=== PATIENT | female | born 1975 | race Caucasian/White ===

== ENCOUNTER 2017-12-30 15:59 | Emergency (ER) | payer OTHER ==
[~2017-12-30] VITALS: Ht 165.1 cm; Wt 102.1 kg
[~2017-12-30 15:59] MED LIST: EFFEXOR XR150 MG; NORCO 7.5-3251 EACH; PRAVACHOL40 MG; PRINIVIL20 MG; invokana
== END 2017-12-30 17:06 | disposition left against medical advice (07) ==
LOC: ER 15:59
DX: M54.2 Cervicalgia (principal); G89.29 Other chronic pain
CPT/HCPCS: 99282

== ENCOUNTER 2020-01-23 04:38 | Emergency (ER) | payer OTHER ==
[~2020-01-23] VITALS: Ht 165.1 cm; Wt 102.1 kg
[~2020-01-23 04:38] MED LIST changes: -ASPIRIN325 MG PO; -ATORVASTATIN CA20 MG PO; -B&O 60MG R/S 60 MG SUPP PR ONE; -CEFTRIAXONE SOD 1 GM/NS 50 ML 50 ML IV ONE; -CLOPIDOGREL75 MG PO; -DEXAMETHASONE SOD PHOS INJ 4 MG/ML VIAL ONE; -ESMOLOL HCL 100MG/10ML 10 MG/ML VIAL ONE; -FENTANYL CITRATE/PF 100MCG/2 ML INJ ONE; -FISH OIL 1,0001 EAC2 PEG; -HYDROMORPHONE 1MG/1ML INJ ONE; -IOPAMIDOL 300MG/ML 50ML INFUS..BTL IV ONE; -KETOROLAC TROMETHAMINE 30 MG/ML VIAL ONE; -LASIX20 MG PO; -LIDOCAINE HCL 2% LOCAL INJ 5 ML SDV VIAL INJ ONE; -METOPROLOL SUCC50 MG PO; -METOPROLOL TARTRATE INJ 1 MG/ML VIAL ONE; -MIDAZOLAM HCL 2 MG/2 ML VIAL ONE; -ONDANSETRON HCL INJ 2MG/ML 2ML 2 MG/ML VIAL ONE; -PROPOFOL IV EMULSION 10 MG/ML 20 ML VIAL ONE; -SEVOFLURANE INHAL SOLN 250 ML PEN BTL ONE
--- OUTSIDE RECORDS SUMMARY | 2020-01-23 04:40 | XMS REPORT | Summary of Care ---
Author Author [facility] Organization [facility] Address Unknown Phone Unavailable Encounter ROMELIA Smith(LEO) [id number] Date(s): 04/24/16 - 04/25/16 [facility] [address] [place] [address]- [phone] Discharge Diagnosis: Foreign body of buttock with infection Discharge Disposition: Home or Self Care Attending Physician: Halina Sun MD Admitting Physician: Halina Sun MD Vital Signs 1 2 3 Most recent to oldest [Reference Range]: 165.1 cm (04/24/16 10:08 PM) 165.1 cm (04/24/16 12:18 PM) Height 98 DegF (04/25/16 4:00 PM) 97.8 DegF (04/25/16 10:42 AM) 97.9 DegF (04/25/16 4:00 AM) Temperature Oral [96.4-99.1 DegF] 138/91 mmHg (04/25/16 4:00 PM) 122/81 mmHg (04/25/16 12:10 PM) 116/77 mmHg (04/25/16 11:40 AM) Blood Pressure [90-140/60-90 mmHg] 14 BRMIN (04/25/16 4:23 PM) 18 BRMIN (04/25/16 4:00 PM) 18 BRMIN (04/25/16 12:10 PM) Respiratory Rate [14-20 BRMIN] 93 bpm (04/25/16 4:00 PM) 65 bpm (04/25/16 12:10 PM) 72 bpm (04/25/16 11:40 AM) Peripheral Pulse Rate [60-100 bpm] 101.364 kg (04/24/16 10:08 PM) 102.273 kg (04/24/16 12:18 PM) Weight 37.19 m2 (04/24/16 10:08 PM) 37.52 m2 (04/24/16 12:18 PM) Body Mass Index Problem List Condition Effective Dates Status Health Status Informan t Anxiety(Confirmed) Resolved ADD (attention Resolved deficit disorder)(Confirmed) Chronic Resolved pain(Confirmed) Depression Resolved (emotion)(Confirmed) DM (diabetes Resolved mellitus)(Confirmed) IBS (irritable bowel Resolved syndrome)(Confirmed) Allergies, Adverse Reactions, Alerts Substance Reaction Severity Status Bactrim Active traMADol Active Medications acetaminophen-hydrocodone 325 mg-7.5 mg oral tablet 1 tab, PO, TID, PRN Pain Score 1-5, 0 Refill(s) Start Date: 04/24/16 Status: Ordered acetaminophen-hydrocodone 325 mg-7.5 mg oral tablet 1 tab, Route: PO, Drug Form: TAB, Dosing Weight 101.364, kg, TID, PRN Pain Score 1-5, Start date: 04/25/16 12:00:00 CDT, Duration: 30 day, Stop date: 05/25/16 1:59:00 CDT Notes: Same as [place] 325-7.5mg Do not exceed 4gm/day of acetaminophen. Start Date: 04/25/16 Stop Date: 04/25/16 Status: Discontinued Adderall 20 mg, Route: PO, Drug form: TAB, BID, Dosing Weight 101.364, kg, Start date: 17:00:00 CDT, Duration: 30 day, Stop date: 05/25/16 9:00:00 CDT Start Date: 04/25/16 Stop Date: 04/25/16 Status: Discontinued Adderall 20 mg oral tablet 20 mg = 1 tab, PO, BID, # 60 tab, 0 Refill(s) Start Date: 04/24/16 Stop Date: 05/24/16 Status: Ordered clindamycin 600 mg, 50 mL, Route: IVPB, Drug form: INJ, ABXQ8H, Dosing Weight 102.273, kg, P riority: STAT, Start date: 04/24/16 18:25:00 CDT, Duration: 3 day, Stop date: 10:25:00 CDT Start Date: 04/24/16 Stop Date: 04/25/16 Status: Discontinued clindamycin 600 mg, 50 mL, Route: IVPB, Drug form: INJ, ABXQ8H, Dosing Weight 101.364, kg, S tart date: 04/25/16 12:00:00 CDT, Duration: 30 day, Stop date: 05/25/16 5:00:00 CDT Start Date: 04/25/16 Stop Date: 04/25/16 Status: Discontinued clindamycin (ANES) Route: IV, Drug form: INJ, ONCE, Stop date: 04/25/16 9:20:00 CDT Start Date: 04/25/16 Stop Date: 04/25/16 Status: Completed clonazePAM 1 mg, 1 tab, Route: PO, Drug form: TAB, BID, Dosing Weight 101.364, kg, PRN Anxi ety, Start date: 04/25/16 10:17:00 CDT, Duration: 30 day, Stop date: 05/25/16 10 :16:00 CDT Notes: (Same As: KlonoPIN) Start Date: 04/25/16 Stop Date: 04/25/16 Status: Discontinued clonazePAM 1 mg oral tablet 1 mg = 1 tab, PO, BID, PRN Anxiety, # 60 tab, 0 Refill(s) Start Date: 04/24/16 Status: Ordered dexamethasone (ANES) Route: IV, Drug form: INJ, ONCE, Stop date: 04/25/16 9:20:00 CDT Start Date: 04/25/16 Stop Date: 04/25/16 Status: Completed docusate sodium 100 mg oral capsule 100 mg, 1 cap, Route: PO, Drug form: CAP, BID, Dosing Weight 101.364, kg, Start date: 04/25/16 17:00:00 CDT, Duration: 30 day, Stop date: 05/25/16 9:00:00 CDT Notes: (Same as: Colace) (Do Not Crush) Start Date: 04/25/16 Stop Date: 04/25/16 Status: Discontinued Effexor XR 75 mg, 2 cap, Route: PO, Drug form: ERCAP, Daily, Dosing Weight 101.364, kg, Sta rt date: 04/26/16 9:00:00 CDT, Duration: 30 day, Stop date: 05/25/16 9:00:00 CDT Notes: Do not open, crush, or chew.(Same As: Effexor XR) Start Date: 04/26/16 Stop Date: 04/25/16 Status: Canceled Effexor XR 75 mg oral capsule, extended release 75 mg = 1 cap, PO, Daily, # 30 cap, 0 Refill(s) Start Date: 04/24/16 Status: Ordered famotidine 20 mg, 1 tab, Route: PO, Drug form: TAB, Q12H, Dosing Weight 101.364, kg, Start date: 04/25/16 21:00:00 CDT, Duration: 30 day, Stop date: 05/25/16 9:00:00 CDT Notes: (Same as: Pepcid) Start Date: 04/25/16 Stop Date: 04/25/16 Status: Discontinued fentaNYL (ANES) Route: IV, Drug form: INJ, ONCE, Stop date: 04/25/16 9:20:00 CDT Start Date: 04/25/16 Stop Date: 04/25/16 Status: Completed Lactated Ringers 1,000 mL 1,000 mL, Rate: 40 ml/hr, Infuse over: 25 hr, Route: IV, Dosing Weight 101.364 k g, Total Volume: 1,000, Start date: 04/25/16 8:19:00 CDT, Duration: 30 day, Stop date: 05/25/16 8:18:00 CDT Start Date: 04/25/16 Stop Date: 04/25/16 Status: Discontinued lidocaine (ANES) Route: IV, Drug form: INJ, ONCE, Stop date: 04/25/16 9:20:00 CDT Start Date: 04/25/16 Stop Date: 04/25/16 Status: Completed LR 1000 mL INJ (ANES) Route: IV, Total Volume: 1,000, Start date: 04/25/16 8:31:00 CDT, Stop date: 9:31:00 CDT Start Date: 04/25/16 Stop Date: 04/25/16 Status: Completed midazolam (ANES) Route: IV, Drug form: SOLN, ONCE, Stop date: 04/25/16 9:20:00 CDT Start Date: 04/25/16 Stop Date: 04/25/16 Status: Completed morphine Sulfate 2 mg, 1 mL, Route: IVP, Drug form: INJ, Q4H, Dosing Weight 102.273, kg, PRN Pain Score 7-10, Start date: 04/24/16 20:08:00 CDT, Duration: 30 day, Stop date: 07/28 20:07:00 CDT Notes: (Same as:MORPhine Sulfate) Start Date: 04/24/16 Stop Date: 04/25/16 Status: Discontinued morphine Sulfate 2 mg, 1 mL, Route: IVP, Drug form: INJ, Q3H, Dosing Weight 101.364, kg, PRN Pain Score 1-3, Start date: 04/25/16 10:14:00 CDT, Duration: 30 day, Stop date: 05/13 10/26 10:13:00 CDT Notes: (Same as:MORPhine Sulfate) Start Date: 04/25/16 Stop Date: 04/25/16 Status: Discontinued morphine Sulfate 4 mg, Route: IVP, ONCE, Dosing Weight 102.273, kg, Priority: STAT, Start date: 0 04/24/16 15:30:00 CDT, Stop date: 04/24/16 15:30:00 CDT Start Date: 04/24/16 Stop Date: 04/24/16 Status: Completed ondansetron 4 mg, 2 mL, Route: IVP, Drug form: INJ, Q6H, Dosing Weight 102.273, kg, PRN Naus ea & Vomiting, Start date: 04/24/16 20:08:00 CDT, Duration: 30 day, Stop date: 05/24/16 20:07:00 CDT Notes: (Same as: Oleg) MEDICATION WASTE Product Size: 4 mgProduct Was jarvis: ___ mg Start Date: 04/24/16 Stop Date: 04/25/16 Status: Discontinued ondansetron 4 mg, 2 mL, Route: IVP, Drug form: INJ, Q6H, Dosing Weight 101.364, kg, PRN Naus ea & Vomiting, Start date: 04/25/16 10:14:00 CDT, Duration: 30 day, Stop date: 05/25/16 10:13:00 CDT Notes: (Same as: Oleg) MEDICATION WASTE Product Size: 4 mgProduct Was jarvis: ___ mg Start Date: 04/25/16 Stop Date: 04/25/16 Status: Discontinued ondansetron (ANES) Route: IV, Drug form: INJ, ONCE, Stop date: 04/25/16 9:20:00 CDT Start Date: 04/25/16 Stop Date: 04/25/16 Status: Completed please bring Adderall 20mg to pharmacy for labeling please bring Adderall 20mg to pharmacy for labeling, 1, Drug form: MISC, Route: MISC, Daily, 04/25/16 15:00:00 CDT, Duration: 30 day, Stop date: 05/25/16 9:00:0 0 CDT Start Date: 04/25/16 Stop Date: 04/25/16 Status: Discontinued propofol (ANES) Route: IV, Drug form: INJ, ONCE, Stop date: 04/25/16 9:20:00 CDT Start Date: 04/25/16 Stop Date: 04/25/16 Status: Completed tetanus toxoid 0.5 ml, Route: IM, Dosing Weight 101.364, kg, ONCE, Start date: 04/25/16 12:00:0 0 CDT, Stop date: 04/25/16 12:00:00 CDT Start Date: 04/25/16 Stop Date: 04/25/16 Status: Discontinued Zofran 4 mg, Route: IVP, Drug form: INJ, ONCE, Dosing Weight 102.273, kg, Priority: STA T, Start date: 04/24/16 15:30:00 CDT, Stop date: 04/24/16 15:30:00 CDT Start Date: 04/24/16 Stop Date: 04/24/16 Status: Completed Results ELECTROLYTES Most recent to 1 2 oldest [Reference Range]: Sodium Lvl [135-145 140 mEq/L 138 mEq/L mEq/L] (04/25/16 5:46 AM) (04/24/16 1:01 PM) Potassium Lvl 3.7 mEq/L 3.9 mEq/L [3.5-5.1 mEq/L] (04/25/16 5:46 AM) (04/24/16 1:01 PM) Chloride Lvl [95-109 106 mEq/L 105 mEq/L mEq/L] (04/25/16 5:46 AM) (04/24/16 1:01 PM) CO2 [24-32 mEq/L] 23 mEq/L 25 mEq/L *LOW* (04/24/16 1:01 PM) (04/25/16 5:46 AM) AGAP [10.0-20.0 14.7 mEq/L 11.9 mEq/L mEq/L] (04/25/16 5:46 AM) (04/24/16 1:01 PM) CHEM PANEL Most recent to 1 2 oldest [Reference Range]: Creatinine Lvl 0.56 mg/dL 0.64 mg/dL [0.50-1.40 mg/dL] (04/25/16 5:46 AM) (04/24/16 1:01 PM) eGFR 117 mL/min/1.73m2 1 112 mL/min/1.73m2 2 *NA* *NA* (04/25/16 5:46 AM) (04/24/16 1:01 PM) BUN [7-22 mg/dL] 11 mg/dL 11 mg/dL (04/25/16 5:46 AM) (04/24/16 1:01 PM) B/C Ratio [6-25] 17 (04/24/16 1:01 PM) Glucose Lvl [70-99 95 mg/dL 105 mg/dL mg/dL] (04/25/16 5:46 AM) *HI* (04/24/16 1:01 PM) Total Protein 7.2 g/dL [6.4-8.4 g/dL] (04/24/16 1:01 PM) Albumin Lvl [3.5-5.0 3.6 g/dL g/dL] (04/24/16 1:01 PM) Globulin [2.7-4.2 3.6 g/dL g/dL] (04/24/16 1:01 PM) A/G Ratio [0.7-1.6] 1.0 (04/24/16 1:01 PM) Calcium Lvl 8.7 mg/dL 9.1 mg/dL [8.5-10.5 mg/dL] (04/25/16 5:46 AM) (04/24/16 1:01 PM) ALT [0-65 unit/L] 30 unit/L (04/24/16 1:01 PM) AST [0-37 unit/L] 17 unit/L (04/24/16 1:01 PM) Alk Phos [39-136 95 unit/L unit/L] (04/24/16 1:01 PM) Bili Total [0.2-1.3 0.4 mg/dL mg/dL] (04/24/16 1:01 PM) Lactic Acid Lvl 0.9 mMol/L [0.5-2.2 mMol/L] (04/24/16 1:01 PM) 1Result Comment: The eGFR is calculated using the CKD-EPI formula. In most young, healthy individuals the eGFR will be >90 mL/min/1.73m2. The eGFR declines with age. An eGFR of 60-89 may be normal in some populations, particularly the elderly, for whom the CKD-EPI formula has not been extensively validated. Use of the eGFR is not recommended in the following populations: Individuals with unstable creatinine concentrations, including patients and those with serious co-morbid conditions. Patients with extremes in muscle mass or diet. The data above are obtained from the National Kidney Disease Education Program ( NKDEP) which additionally recommends that when the eGFR is used in patients with extremes of body mass index for purposes of drug dosing, the eGFR should be mul tiplied by the estimated BMI. 2Result Comment: The eGFR is calculated using the CKD-EPI formula. In most young, healthy individuals the eGFR will be >90 mL/min/1.73m2. The eGFR declines with age. An eGFR of 60-89 may be normal in some populations, particularly the elderly, for whom the CKD-EPI formula has not been extensively validated. Use of the eGFR is not recommended in the following populations: Individuals with unstable creatinine concentrations, including patients and those with serious co-morbid conditions. Patients with extremes in muscle mass or diet. The data above are obtained from the National Kidney Disease Education Program ( NKDEP) which additionally recommends that when the eGFR is used in patients with extremes of body mass index for purposes of drug dosing, the eGFR should be mul tiplied by the estimated BMI. HEMATOLOGY Most recent to 1 2 oldest [Reference Range]: WBC [3.7-10.4 K/CMM] 8.1 K/CMM 10.4 K/CMM (04/25/16 5:46 AM) (04/24/16 1:01 PM) RBC [4.20-5.40 5.31 M/CMM 5.52 M/CMM M/CMM] (04/25/16 5:46 AM) *HI* (04/24/16 1:01 PM) Hgb [12.0-16.0 g/dL] 14.9 g/dL 15.4 g/dL (04/25/16 5:46 AM) (04/24/16 1:01 PM) Hct [36.0-48.0 %] 45.7 % 46.6 % (04/25/16 5:46 AM) (04/24/16 1:01 PM) MCV [80.0-98.0 fL] 86.1 fL 84.5 fL (04/25/16 5:46 AM) (04/24/16 1:01 PM) MCH [27.0-31.0 pg] 28.0 pg 27.9 pg (04/25/16 5:46 AM) (04/24/16 1:01 PM) MCHC [32.0-36.0 32.6 g/dL 33.0 g/dL g/dL] (04/25/16 5:46 AM) (04/24/16 1:01 PM) RDW [11.5-14.5 %] 13.3 % 13.2 % (04/25/16 5:46 AM) (04/24/16 1:01 PM) Platelet [133-450 206 K/CMM 223 K/CMM K/CMM] (04/25/16 5:46 AM) (04/24/16 1:01 PM) MPV [7.4-10.4 fL] 8.3 fL 8.2 fL (04/25/16 5:46 AM) (04/24/16 1:01 PM) Segs [45.0-75.0 %] 42.6 % 47.9 % *LOW* (04/24/16 1:01 PM) (04/25/16 5:46 AM) Lymphocytes 47.2 % 43.0 % [20.0-40.0 %] *HI* *HI* (04/25/16 5:46 AM) (04/24/16 1:01 PM) Monocytes [2.0-12.0 5.2 % 5.4 % %] (04/25/16 5:46 AM) (04/24/16 1:01 PM) Eosinophils [0.0-4.0 4.3 % 2.6 % %] *HI* (04/24/16 1:01 PM) (04/25/16 5:46 AM) Basophils [0.0-1.0 0.7 % 1.1 % %] (04/25/16 5:46 AM) *HI* (04/24/16 1:01 PM) Segs-Bands # 3.5 K/CMM 5.0 K/CMM [1.5-8.1 K/CMM] (04/25/16 5:46 AM) (04/24/16 1:01 PM) Lymphocytes # 3.8 K/CMM 4.5 K/CMM [1.0-5.5 K/CMM] (04/25/16 5:46 AM) (04/24/16 1:01 PM) Monocytes # [0.0-0.8 0.4 K/CMM 0.6 K/CMM K/CMM] (04/25/16 5:46 AM) (04/24/16 1:01 PM) Eosinophils # 0.4 K/CMM 0.3 K/CMM [0.0-0.5 K/CMM] (04/25/16 5:46 AM) (04/24/16 1:01 PM) Basophils # [0.0-0.2 0.1 K/CMM 0.1 K/CMM K/CMM] (04/25/16 5:46 AM) (04/24/16 1:01 PM) Immunizations Given and Recorded Vaccine Date Status Refusal Reason tetanus-diphtheria toxoids 04/25/16 Given Procedures Procedure Date Related Diagnosis Body Site Appendectomy Cholecystectomy Partial hysterectomy Spinal fusion Social History Social History Type Response Substance Abuse Use: None. Alcohol Never Smoking Status Current every day smoker; T ype: Cigarettes; Tobacco use per day: 1; Lives with someone who smokes; Cigarette Smok ing Last 365 Days No; Reg Smoking Cessation Counseling No Assessment and Plan Extracted from: Title: Surgery Staff Author: Halina Sun MD Date: 04/25 Surgery Staff Progress Note Halina Sun M.D. cc: foreign body RLE/groin SUBJECTIVE: Feeling well since removal of foreign body. The pain she came in with from the needle is gone. The ladonna drain from the OR has already fallen out as she was ambulating the halls. Feels ready to go home. OBJECTIVE: Physical Exam: gen - NAD, in bed VitalsTmp(F)[id number] 04/25 16:23 1498 21% 04/25 12:10----[id number]--- 04/25 11:40----[id number]--- 04/25 11:25----[id number]--- 04/25 11:10----11083/7218------ 24 Hr Tmax: 98.5F (36.94c) at 04/24 20:0 0Vital Signs are the last 5 in the past 48 hours. I&ORecordInOutBal 09/1324hr Tot 1416 10 1406 /1224hr Tot 52 0 52 Labs (Last four charted values) WBC 8.1(APR 25)10.4(APR 24) Hgb 14.9(APR 25)15.4(APR 24) Hct 45.7(APR 13)46.6(APR 12) Plt 206(APR 25)223(APR 12) Na 140(APR 13)138(APR 24) K 3.7(APR 25)3.9(APR 24) CO2 L 23(APR 13)25(APR 12) Cl 106(APR 13)105(APR 12) Cr 0.56(APR 13)0.64(APR 12) BUN 11(APR 13)11(APR 12) Glucose Random 95(APR 25)H 105(APR 24) Ca 8.7(APR 25)9.1(APR 24) ASSESSMENT: 41 year old woman with foreign body in her RIGHT lower extremity s/p attempt at home incision and drainage of abscess with sewing needle with loss of needle in soft tissue. Needle was extracted in OR earlier today and incision loosely approximated with rachana. PLAN: 1. DISCHARGE home AFTER tetanus shot tod ay. 2. Heart healthy diet. 3. RTC with me 1 week for postop check. 4. Resume home meds. 5. She is to complete her course of prev iously prescribed antibiotics and may take either OTC tylenol or her home pain meds for pain. No new pain meds being prescribed. 6. Activity: shower or tub bath bid to k eep incision clean and dry. 7. Call Halina Sun MD at [phone] for: fever of 101.5 degrees F or higher, any big increase in abdominal pain, any redness/drainage from incisions, any persistent nausea/emesis, or any questions or concerns. Discussed with patient and RN. All questions answered. Extracted from: Title: Surgery Staff Author: Halina Sun MD Date: 04/25 HISTORY AND PHYSICAL HALINA SUN MD CC: foreign body in RLE HPI: 41 year old woman with morbid obesity wh o attempted self drainage of a RIGHT thigh/groin abscess ~5 days ago with a sewing needle. She has had multiple abscesses before in the region and has had drainage both by herself and medical csr. This time, when she tried to drain her abscess, she lost the needle in her soft tissue. She could not retrieve it. She left it in there but began having worsening pain in the region up until yesterday when she came to the [facility] ER for evaluation as she couldn't take the pain anymore. I was consulted by Dr. Celeste Schaeffer for surgical admission. PMH: 1. morbid obesity (BMI 37.5) 2. depression 3. ADHD 4. chronic back pain 5. anxiety PSH: 1. multiple prior abscess drainage 2. LITA 3. appendectomy 4. cholecystectomy FAM HISTORY: + CAD SOCIAL HISTORY: + tobacco no alcohol no drugs MEDICATIONS: see chart ALLERGIES: 1. bactrim 2. toradol ROS: negative x 14 systems (constitutional, eyes, ENT, CV, respiratory, GI, , MSK, neuro, psych, endocrine, heme/lymph, allergic, skin/breast) EXCEPT per HPI EXAM: VitalsTmp(F)[id number] 04/25 08:[id number]--- 04/25 04:0097.489703/7518------ 04/25 00:0098.281193/7618------ 04/24 21:57 98--- 04/24 21:09----54065/82-------- 24 Hr Tmax: 98.5F (36.94c) at 04/24 20:0 0Vital Signs are the last 5 in the past 48 hours. I&ORecordInOutBal 4hr Tot 52 0 52 4hr Tot 0 0 0 GENERAL/CONSTITUTIONAL - NAD, morbid obesity HEENT - NCAT, PERRA, EOMI, nasopharynx clear, throat clear NECK - midline PULMONARY - equal chest rise B CARDIOVASCULAR - reg rate GI - soft, obese, non tender, non distended MSK - LONGORIA with appropriate muscle tone PSYCH - appropriate mood/affect SKIN/LYMPHATICS - well healed prior incisions RIGHT groin from drainage procedures, not clear where recent needle was inserted/lost as there is no obvious insertion site and it is not palpable Labs (Last four charted values) WBC 8.1(APR 25)10.4(APR 24) Hgb 14.9(APR 25)15.4(APR 24) Hct 45.7(APR 25)46.6(APR 24) Plt 206(APR 13)223(APR 24) Na 140(APR 13)138(APR 12) K 3.7(APR 13)3.9(APR 12) CO2 L 23(APR 13)25(APR 12) Cl 106(APR 13)105(APR 12) Cr 0.56(APR 13)0.64(APR 12) BUN 11(APR 25)11(APR 12) Glucose Random 95(APR 25)H 105(APR 24) Ca 8.7(APR 25)9.1(APR 24) Study: Right hip, 2 views Clinical Indication: Erythema Comparison: None FINDINGS: Multiple views the right hip show no acute bony fracture, joint dislocation, or discrete osseous erosion. Thin, linear, metallic density measuring 4.5 cm in length is noted in the medial soft tissues of the proximal thigh. IMPRESSION: 1. No acute bony abnormality of the righ t hip. 2. 4.5 cm linear metallic density in the medial soft tissues of the proximal right thigh, compatible with foreign body. EXAM: Pelvis w IV contrast CT Multiple contiguous axial images of the pelvis were performed with IV contrast. No p.o. contrast was given. Coronal and sagittal reformats were performed for further evaluation. Findings: No definite acute focal intrapelvic abnormality detected. Abundance of stool within the colon. The bladder is distended. Postoperative hysterectomy. Small left ovarian cysts are present. Postoperative laminectomy and posterior spinal fusion are present. Again noted is about 4.1 cm needle embedded within the posterior compartment of the right upper thigh. IMPRESSION: 1. Again noted is about 4.1 cm needle em bedded within the posterior compartment of the right upper thigh likely compatible with foreign body. Please correlate clinically. 2. Postoperative hysterectomy. CT discussed with Dr. Menendez in radiology - foreign body (needle) entirely in the biceps femoris. Not in subcutaneous tissue. ASSESSMENT: 41 year old woman with foreign body in her RIGHT lower extremity s/p attempt at home incision and drainage of abscess with sewing needle with loss of needle in soft tissue. PLAN: 1. NPO 2. IVF 3. Antibiotic coverage to cover skin/sof t tissue cabrera 4. to OR for removal of foreign body. Henok coon understands that as the foreign body has been there almost a week and a track is no longer visible, xray may be required in the OR. She also understands that there is the risk of damage to surrounding structures (e.g. vessels, nerves) in extracting this foreign body. She would like to proceed. She states she cannot live with the pain. All questions answered.
--- OUTSIDE RECORDS SUMMARY | 2020-01-23 04:40 | XMS REPORT | Summary of Care ---
Author Author [facility] Organization [facility] Address Unknown Phone Unavailable Encounter ROMELIA Smith(LEO) [id number] Date(s): 12/16/15 - 12/16/15 [facility] [address] [place] [address]- Discharge Diagnosis: Acute UTI Discharge Disposition: Home Attending Physician: Sergei Benton MD Vital Signs Most recent to 1 2 oldest [Reference Range]: Height 167.64 cm (12/16/15 11:57 AM) Temperature Oral 98.7 DegF 98.9 DegF [96.4-99.1 DegF] (12/16/15 1:13 PM) (12/16/15 11:57 AM) Blood Pressure 114/80 mmHg 116/81 mmHg [90-140/60-90 mmHg] (12/16/15 1:13 PM) (12/16/15 11:57 AM) Respiratory Rate 18 BRMIN 18 BRMIN [14-20 BRMIN] (12/16/15 1:13 PM) (12/16/15 11:57 AM) Peripheral Pulse 91 bpm 93 bpm Rate [60-100 bpm] (12/16/15 1:13 PM) (12/16/15 11:57 AM) Weight 104.545 kg (12/16/15 11:57 AM) Body Mass Index 37.2 m2 (12/16/15 11:57 AM) Problem List No data available for this section Allergies, Adverse Reactions, Alerts Substance Reaction Severity Status NKDA Active Medications Cipro 500 mg oral tablet 500 mg = 1 tab, PO, Q12H, X 7 day, # 14 tab, 0 Refill(s) Start Date: 12/16/15 Stop Date: 12/23/15 Status: Ordered ketOROLAC 60 mg, 2 mL, Route: IM, Drug form: INJ, ONCE, Dosing Weight 104.545, kg, Priorit y: STAT, Start date: 12/16/15 12:15:00 CDT, Stop date: 12/16/15 12:15:00 CDT Notes: (Same as:Toradol) IV bolus must be given >15 seconds. Give IM administration slowly and deeply into the muscle.Not for use > 4 days MEDICATION WASTE Product Size: 60 mgProduct Wasted: ___ mg Start Date: 12/16/15 Stop Date: 12/16/15 Status: Completed ketOROLAC 10 mg oral tablet 10 mg = 1 tab, PO, Q6H, X 5 day, # 20 tab, 0 Refill(s) Start Date: 12/16/15 Stop Date: 12/21/15 Status: Ordered [place] 10/325 oral tablet 1 tab, Route: PO, Drug Form: TAB, Dosing Weight 104.545, kg, ONCE, STAT, Start d ate: 12/16/15 12:15:00 CDT, Stop date: 12/16/15 12:15:00 CDT Notes: Do not exceed 4gm/day of acetaminophen. (Same as: [place] 325/10) Start Date: 12/16/15 Stop Date: 12/16/15 Status: Completed [place] 5/325 oral tablet 1-2 tab, PO, Q4-6H, PRN Pain, X 5 day, # 15 tab, 0 Refill(s) Start Date: 12/16/15 Stop Date: 12/21/15 Status: Ordered Results URINE AND STOOL Most recent to 1 oldest [Reference Range]: UA Turbidity [Clear] Slight *ABN* (12/16/15 12:32 PM) UA Color [Yellow] Yellow *NA* (12/16/15 12:32 PM) UA pH [5.0-8.0] 5.0 (12/16/15 12:32 PM) UA Spec Grav 1.018 [<=1.030] (12/16/15 12:32 PM) UA Glucose [Negative Negative mg/dL mg/dL] *NA* (12/16/15 12:32 PM) UA Blood [Negative] Negative (12/16/15 12:32 PM) UA Ketones [Negative Negative mg/dL mg/dL] *NA* (12/16/15 12:32 PM) UA Protein [Negative Negative mg/dL mg/dL] (12/16/15 12:32 PM) UA Urobilinogen <=1.0 mg/dL [0.1-1.0 mg/dL] *NA* (12/16/15 12:32 PM) UA Bili [Negative] Negative *NA* (12/16/15 12:32 PM) UA Leuk Est Negative [Negative] (12/16/15 12:32 PM) UA Nitrite Negative [Negative] (12/16/15 12:32 PM) UA WBC [0-5 /HPF] 6 /HPF *HI* (12/16/15 12:32 PM) UA RBC [0-2 /HPF] 6 /HPF *HI* (12/16/15 12:32 PM) UA Bacteria [None Moderate /HPF Seen /HPF] *ABN* (12/16/15 12:32 PM) UA Sq Epi [Few /LPF] Occasional /LPF *NA* (12/16/15 12:32 PM) UA Amorph Silvina [None Occasional /HPF Seen /HPF] *NA* (12/16/15 12:32 PM) UA Mucus [None Seen Few /LPF /LPF] *NA* (12/16/15 12:32 PM) Immunizations No data available for this section Procedures No data available for this section Social History Social History Type Response Smoking Status Never smoker; Exposure to T obacco Smoke None; Cigarette Smoking Last 365 Days No; Reg Smoking Cessation Counseli ng No Assessment and Plan No data available for this section
--- OUTSIDE RECORDS SUMMARY | 2020-01-23 04:40 | XMS REPORT | Summary of Care ---
Author Author [facility] Organization [facility] Address Unknown Phone Unavailable Encounter ROMELIA Smith(LEO) [phone] Date(s): 12/24/17 - 12/25/17 [facility] [address] [place] [address]- Discharge Disposition: Left Against Medical Advise Attending Physician: Hector Hunter MD Admitting Physician: Hector Hunter MD Vital Signs 1 2 3 Most recent to oldest [Reference Range]: 165.1 cm (12/24/17 11:27 PM) Height 97.7 DegF (12/25/17 7:35 AM) 97.9 DegF (12/25/17 4:00 AM) 98.0 DegF (12/25/17 12:00 AM) Temperature Oral [96.4-99.1 DegF] 108/72 mmHg (12/25/17 7:35 AM) 104/63 mmHg (12/25/17 4:00 AM) 123/85 mmHg (12/25/17 12:00 AM) Blood Pressure [90-140/60-90 mmHg] 19 BRMIN (12/25/17 7:58 AM) 18 BRMIN (12/25/17 7:35 AM) 18 BRMIN (12/25/17 4:00 AM) Respiratory Rate [14-20 BRMIN] 61 bpm (12/25/17 7:35 AM) 66 bpm (12/25/17 4:00 AM) 63 bpm (12/25/17 12:00 AM) Peripheral Pulse Rate [60-100 bpm] 102.841 kg (12/24/17 11:27 PM) Weight 37.73 m2 (12/24/17 11:27 PM) Body Mass Index Problem List Condition Effective Dates Status Health Status Informan t Anxiety(Confirmed) Resolved ADD (attention Resolved deficit disorder)(Confirmed) Chronic Resolved pain(Confirmed) Depression Resolved (emotion)(Confirmed) DM (diabetes Resolved mellitus)(Confirmed) IBS (irritable bowel Resolved syndrome)(Confirmed) Allergies, Adverse Reactions, Alerts Substance Reaction Severity Status Bactrim Active traMADol Active Medications acetaminophen 650 mg, 2 tab, Route: PO, Drug form: TAB, Q4H, Dosing Weight 101.364, kg, PRN Pa in 1-3/Temp > 100.4 F, Start date: 12/24/17 21:56:00 CDT, Duration: 30 day, Stop date: 01/23/18 21:55:00 CDT Notes: Do not exceed 4 gm/day. (Same as: Tylenol) Start Date: 12/24/17 Stop Date: 12/25/17 Status: Discontinued Ambien 5 mg, 1 tab, Route: PO, Drug form: TAB, Bedtime, Dosing Weight 102.841, kg, PRN Insomnia, Start date: 12/24/17 23:49:00 CDT, Duration: 30 day, Stop date: 23:48:00 CDT Notes: (Same As: Ambien) Start Date: 12/24/17 Stop Date: 12/24/17 Status: Discontinued Ambien 5 mg, 1 tab, Route: PO, Drug form: TAB, Bedtime, Dosing Weight 102.841, kg, PRN Insomnia, Start date: 12/24/17 23:55:00 CDT, Duration: 30 day, Stop date: 23:54:00 CDT Notes: (Same As: Ambien) Start Date: 12/24/17 Stop Date: 12/25/17 Status: Discontinued aspirin 325 mg tablet, enteric coated 325 mg, 1 tab, Route: PO, Drug form: ECTAB, Daily, Dosing Weight 101.364, kg, St art date: 12/24/17 22:00:00 CDT, Duration: 30 day, Stop date: 01/23/18 9:00:00 C DT Notes: (Do Not Crush) Do not crush or chew. Start Date: 12/24/17 Stop Date: 12/25/17 Status: Discontinued bisacodyl 10 mg, 1 supp, Route: IL, Drug form: SUPP, Daily, Dosing Weight 101.364, kg, PRN Constipation, Start date: 12/24/17 21:56:00 CDT, Duration: 30 day, Stop date: 0 01/23/18 21:55:00 CDT Notes: (Same As: Dulcolax, Bisco-Lax) Start Date: 12/24/17 Stop Date: 12/25/17 Status: Discontinued famotidine 20 mg, 1 tab, Route: PO, Drug form: TAB, Q12H, Dosing Weight 101.364, kg, Start date: 12/24/17 22:05:00 CDT, Duration: 30 day, Stop date: 01/23/18 21:00:00 CDT Notes: (Same as: Pepcid) Start Date: 12/24/17 Stop Date: 12/25/17 Status: Discontinued fentaNYL 50 microgram, Route: IVP, ONCE, Dosing Weight 101.364, kg, Priority: STAT, Start date: 12/24/17 21:17:00 CDT, Stop date: 12/24/17 21:17:00 CDT Start Date: 12/24/17 Stop Date: 12/24/17 Status: Completed ketOROLAC 15 mg, Route: IVP, Drug form: INJ, ONCE, Dosing Weight 101.364, kg, Priority: ST AT, Start date: 12/24/17 17:38:00 CDT, Stop date: 12/24/17 17:38:00 CDT Start Date: 12/24/17 Stop Date: 12/24/17 Status: Completed Saline Flush 0.9% 10 ml, Route: IVP, Drug Form: INJ, Dosing Weight 101.364, kg, Q12H, Start date: 12/25/17 9:00:00 CDT, Duration: 30 day, Stop date: 01/23/18 21:00:00 CDT Notes: (Same as: BD Posiflush) Start Date: 12/25/17 Stop Date: 12/25/17 Status: Discontinued Saline Flush 0.9% 10 ml, Route: IVP, Drug Form: INJ, Dosing Weight 101.364, kg, PRN, PRN Line Flus h, Start date: 12/24/17 21:56:00 CDT, Duration: 30 day, Stop date: 01/23/18 21:5 5:00 CDT Notes: (Same as: BD Posiflush) Start Date: 12/24/17 Stop Date: 12/25/17 Status: Discontinued Saline Flush 0.9% 10 mL, Route: IVP, Drug Form: INJ, Dosing Weight 101.364, kg, PRN, PRN Line Flus h, Start date: 12/24/17 15:24:00 CDT, Duration: 30 day, Stop date: 01/23/18 15:2 3:00 CDT Notes: (Same as: BD Posiflush) Start Date: 12/24/17 Stop Date: 12/25/17 Status: Discontinued Valium 5 mg, Route: PO, ONCE, Dosing Weight 101.364, kg, Priority: STAT, Start date: 17:38:00 CDT, Stop date: 12/24/17 17:38:00 CDT Start Date: 12/24/17 Stop Date: 12/24/17 Status: Completed Results ELECTROLYTES Most recent to 1 oldest [Reference Range]: Sodium Lvl [135-145 146 mEq/L 142 mEq/L mEq/L] *HI* (12/24/17 4:40 PM) (12/25/17 4:32 AM) Potassium Lvl 3.7 mEq/L 3.5 mEq/L [3.5-5.1 mEq/L] (12/25/17 4:32 AM) (12/24/17 4:40 PM) Chloride Lvl [95-109 107 mEq/L 104 mEq/L mEq/L] (12/25/17 4:32 AM) (12/24/17 4:40 PM) CO2 [24-32 mEq/L] 29 mEq/L 27 mEq/L (12/25/17 4:32 AM) (12/24/17 4:40 PM) AGAP [10.0-20.0 13.7 mEq/L 14.5 mEq/L mEq/L] (12/25/17 4:32 AM) (12/24/17 4:40 PM) CHEM PANEL Most recent to 1 2 oldest [Reference Range]: Creatinine Lvl 0.83 mg/dL 0.69 mg/dL [0.50-1.40 mg/dL] (12/25/17 4:32 AM) (12/24/17 4:40 PM) eGFR 87 mL/min/1.73m2 1 108 mL/min/1.73m2 2 *NA* *NA* (12/25/17 4:32 AM) (12/24/17 4:40 PM) BUN [7-22 mg/dL] 17 mg/dL 14 mg/dL (12/25/17 4:32 AM) (12/24/17 4:40 PM) B/C Ratio [6-25] 20 20 (12/25/17 4:32 AM) (12/24/17 4:40 PM) Glucose Lvl [70-99 92 mg/dL 100 mg/dL mg/dL] (12/25/17 4:32 AM) *HI* (12/24/17 4:40 PM) Total Protein 6.5 g/dL 7.1 g/dL [6.4-8.4 g/dL] (12/25/17 4:32 AM) (12/24/17 4:40 PM) Albumin Lvl [3.5-5.0 3.3 g/dL 3.9 g/dL g/dL] *LOW* (12/24/17 4:40 PM) (12/25/17 4:32 AM) Globulin [2.7-4.2 3.2 g/dL 3.2 g/dL g/dL] (12/25/17 4:32 AM) (12/24/17 4:40 PM) A/G Ratio [0.7-1.6] 1.0 1.2 (12/25/17 4:32 AM) (12/24/17 4:40 PM) Calcium Lvl 8.6 mg/dL 8.8 mg/dL [8.5-10.5 mg/dL] (12/25/17 4:32 AM) (12/24/17 4:40 PM) ALT [0-65 unit/L] 22 unit/L 25 unit/L (12/25/17 4:32 AM) (12/24/17 4:40 PM) AST [0-37 unit/L] 26 unit/L 10 unit/L (12/25/17 4:32 AM) (12/24/17 4:40 PM) Alk Phos [39-136 72 unit/L 80 unit/L unit/L] (12/25/17 4:32 AM) (12/24/17 4:40 PM) Bili Total [0.2-1.3 0.6 mg/dL 0.6 mg/dL mg/dL] (12/25/17 4:32 AM) (12/24/17 4:40 PM) 1Result Comment: The eGFR is calculated [...] be mul tiplied by the estimated BMI. CARDIAC ENZYMES Most recent to 1 2 oldest [Reference Range]: Total CK [12-191 24 unit/L unit/L] (12/24/17 4:40 PM) CK MB [0.5-3.6 <1.0 ng/mL ng/mL] (12/24/17 4:40 PM) CK MB Index <4.2 [0.0-2.5] *HI* (12/24/17 4:40 PM) Troponin-I <0.02 ng/mL [0.00-0.40 ng/mL] (12/24/17 4:40 PM) LIPIDS Most recent to 1 2 oldest [Reference Range]: CHD Risk [3.90-5.80] 5.54 (12/24/17 10:46 PM) Chol [<=199 mg/dL] 205 mg/dL *HI* (12/24/17 10:46 PM) Trig [<=149 mg/dL] 266 mg/dL *HI* (12/24/17 10:46 PM) HDL [>=61 mg/dL] 37 mg/dL *LOW* (12/24/17 10:46 PM) LDL (Calculated) 115 mg/dL [<=99 mg/dL] *HI* (12/24/17 10:46 PM) VLDL 53 *NA* (12/24/17 10:46 PM) SPECIAL CHEMISTRY Most recent to 1 2 oldest [Reference Range]: Hgb A1C [<=5.6 %] 5.2 % (12/24/17 10:46 PM) ENDOCRINOLOGY Most recent to 1 2 oldest [Reference Range]: S Preg [Negative] Negative *NA* (12/24/17 4:40 PM) HEMATOLOGY Most recent to 1 2 oldest [Reference Range]: WBC [3.7-10.4 K/CMM] 10.7 K/CMM 14.8 K/CMM *HI* *HI* (12/25/17 4:32 AM) (12/24/17 4:40 PM) RBC [4.20-5.40 4.54 M/CMM 4.85 M/CMM M/CMM] (12/25/17 4:32 AM) (12/24/17 4:40 PM) Hgb [12.0-16.0 g/dL] 13.8 g/dL 14.5 g/dL (12/25/17 4:32 AM) (12/24/17 4:40 PM) Hct [36.0-48.0 %] 40.3 % 42.8 % (12/25/17 4:32 AM) (12/24/17 4:40 PM) MCV [80.0-98.0 fL] 88.8 fL 88.3 fL (12/25/17 4:32 AM) (12/24/17 4:40 PM) MCH [27.0-31.0 pg] 30.5 pg 30.0 pg (12/25/17 4:32 AM) (12/24/17 4:40 PM) MCHC [32.0-36.0 34.4 g/dL 34.0 g/dL g/dL] (12/25/17 4:32 AM) (12/24/17 4:40 PM) RDW [11.5-14.5 %] 12.9 % 12.9 % (12/25/17 4:32 AM) (12/24/17 4:40 PM) MPV [7.4-10.4 fL] 8.5 fL 8.2 fL (12/25/17 4:32 AM) (12/24/17 4:40 PM) Platelet [133-450 222 K/CMM 277 K/CMM K/CMM] (12/25/17 4:32 AM) (12/24/17 4:40 PM) Segs [45.0-75.0 %] 43.1 % 56.9 % *LOW* (12/24/17 4:40 PM) (12/25/17 4:32 AM) Lymphocytes 46.2 % 35.4 % [20.0-40.0 %] *HI* (12/24/17 4:40 PM) (12/25/17 4:32 AM) Monocytes [2.0-12.0 5.9 % 4.3 % %] (12/25/17 4:32 AM) (12/24/17 4:40 PM) Eosinophils [0.0-4.0 4.3 % 2.4 % %] *HI* (12/24/17 4:40 PM) (12/25/17 4:32 AM) Basophils [0.0-1.0 0.5 % 1.0 % %] (12/25/17 4:32 AM) (12/24/17 4:40 PM) Segs-Bands # 4.6 K/CMM 8.4 K/CMM [1.5-8.1 K/CMM] (12/25/17 4:32 AM) *HI* (12/24/17 4:40 PM) Lymphocytes # 5.0 K/CMM 5.2 K/CMM [1.0-5.5 K/CMM] (12/25/17 4:32 AM) (12/24/17 4:40 PM) Monocytes # [0.0-0.8 0.6 K/CMM 0.6 K/CMM K/CMM] (12/25/17 4:32 AM) (12/24/17 4:40 PM) Eosinophils # 0.5 K/CMM 0.4 K/CMM [0.0-0.5 K/CMM] (12/25/17 4:32 AM) (12/24/17 4:40 PM) Basophils # [0.0-0.2 0.1 K/CMM 0.2 K/CMM K/CMM] (12/25/17 4:32 AM) (12/24/17 4:40 PM) Immunizations Given and Recorded Vaccine Date Status Refusal Reason tetanus-diphtheria toxoids 04/25/16 Given Procedures Procedure Date Related Diagnosis Body Site Status Appendectomy Completed Cholecystectomy Completed Partial hysterectomy Completed Spinal fusion Completed Social History Social History Type Response Substance Abuse Use: None. Alcohol Never Smoking Status Current every day smoker; T ype: Cigarettes; Lives with someone who smokes; Cigarette Smoking Last 365 Days No; Reg Smoking Cessation Counseling No; Tobacco use per day: 1; entered on: 12/24/17 Assessment and Plan Extracted from: Title: [facility] Author: Sabino Johnston MD Date: 12/25/17 Hospitalist Service Discharge Summary [facility]charge Summary PATIENT NAME:JENY MORALES ATTENDING: SABINO HOFFMAN JR, MD ADMISSION DATE:12/24/2017 15:06 DISCHARGE DATE:12/25/2017 09:24 DISCHARGE DIAGNOSIS: 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 Patient left AMA.Unable to provide any information to patient due to her leaving against medical advice before being seen by the daytime physician. DISCHARGE INSTRUCTIONS: Unable to provide as patient left AMA. DISCHARGE DIET: Unable to provide as patient left AMA. DISCHARGE MEDICATIONS: PLEASE SEE HMR FOR DETAILS PERTAINING TO DISCHARGE MEDICATIONS DISCHARGE FOLLOWUP: Unable to provide as patient left AMA. A total of 0 minutes was spent planning discharge which included bedside counseling.
--- OUTSIDE RECORDS SUMMARY | 2020-01-23 04:40 | XMS REPORT | Continuity of Care Document ---
Author Author Jessica Arnel [employer] JENY Kim [facility] [employer] Address Unknown Phone Unavailable Care Team Providers Care Public Health Name Role Phone [facility] [employer] Unavailable Un available Problems Problem Status Onset Date Classification Date Reported Comments Source NECK PAIN Active 12/24/2017 [facility] DISSECTION OF VERTEBRAL ARTERY, STROKE-L Active 12/24/2017 [facility] Discharge Diagnosis: Foreign body of but tock with infection 04/24/2016 04/28/2016 [facility] GROIN PAIN Active 04/24/2016 [facility] FOREIGN BODY REMOVAL Active 04/24/2016 [facility] FOREIGN BODY REMOVAL WITH ABSCESS Active 04/24/2016 [facility] Discharge Diagnosis: Acute UTI 12/16/2015 12/19/2015 [facility] KIDNEY STONES Active 12/16/2015 [facility] M25.50 - PAIN IN UNSPECIFIED JOINT Active 07/05/2015 [facility] 719.45 - JOINT PAIN-PELV Active 08/10/2014 [facility] Anxiety (finding) Resolved Problem 12/28/2017 [facility] Attention deficit hyperactivity disorder (disorder) Resolved Problem 12/28/2017 [facility] Chronic pain (finding) Resolved Problem 12/28/2017 [facility] Depressive disorder (disorder) Resolved Problem [facility] Diabetes mellitus (disorder) R esolved Problem [facility] Irritable colon (disorder) Res olved Problem [facility] CUTANEOUS ABSCESS OF GROIN Act sheeba [facility] DISSECTION OF VERTEBRAL ARTERY Active [facility] UNSPECIFIED SYMPTOMS AND SIGNS INVOLVING Active [facility] Medications Medication Details Route Status Patient Instructions Ordering Provider Order Date Source Saline Flush 0.9% Notes: (Same as: BD Posiflush) Inactive 12/25/2017 [facility] Ambien Notes: (Same As: Ambien) No Longer Active 12/25/2017 [facility] Ambien Notes: (Same As: Ambien) Inactive 12/25/2017 [facility] Famotidine Notes: (Same as: Pe pcid) No Longer Active 12/25/2017 [facility] Aspirin 325 MG Enteric Coated Tablet Notes: (Do Not Crush) Do not crush or chew. No Longer Active 12/25/2017 [facility] Saline Flush 0.9% Notes: (Same as: BD Posiflush) No Longer Active 12/25/2017 [facility] Acetaminophen Notes: Do not ex ceed 4 gm/day. (Same as: Tylenol) No Longer Active 12/25/2017 [facility] Bisacodyl Notes: (Same As: Dul colax, Bisco-Lax) No Longer Active 12/25/2017 [facility] Fentanyl 50 microgram, Route: IVP, ONCE, Dosing Weight 101.364, kg, Priority: STAT, Start date: 12/24/17 21:17:00 CDT, Stop date: 12/24/17 21:17:00 CDT Inactive 12/25/2017 [facility] Ketorolac 15 mg, Route: IVP, D rug form: INJ, ONCE, Dosing Weight 101.364, kg, Priority: STAT, Start date: 12/24/17 17:38:00 CDT, Stop date: 12/24/17 17:38:00 CDT Inactive 12/24/2017 [facility] Valium 5 mg, Route: PO, ONCE, Dosing Weight 101.364, kg, Priority: STAT, Start date: 12/24/17 17:38:00 CDT, Stop date: 12/24/17 17:38:00 CDT Inactive 12/24/2017 [facility] Saline Flush 0.9% Notes: (Same as: BD Posiflush) No Longer Active 12/24/2017 [facility] Effexor XR Notes: Do not open, crush, or chew. (Same As: Effexor XR) No Longer Active 04/26/2016 [facility] Famotidine Notes: (Same as: Pe pcid) Inactive 04/26/2016 [facility] Adderall 20 mg, Route: PO, Simon g form: TAB, BID, Dosing Weight 101.364, kg, Start date: 04/25/16 17:00:00 CDT, Duration: 30 day, Stop date: 05/25/16 9:00:00 CDT Inactive 04/25/2016 [facility] Docusate Sodium 100 MG Oral Capsule Notes: (Same as: Colace) (Do Not Crush) Inactiv e 04/25/2016 [facility] please bring Adderall 20mg to pharmacy for labeling please bring Adderall 20mg to pharmacy for labeling, 1, Drug form: MISC, Route: MISC, Daily, 04/25/16 15:00:00 CDT, Duration: 30 day, Stop date: 05/25/16 9:00:00 CDT Inactive 04/25/2016 [facility] Acetaminophen 325 MG / Hydrocodone Alexia trate 7.5 MG Oral Tablet Notes: Same as [place] 325-7.5mg Do not exceed 4gm/day of acetaminophen. Inactive 04/25/2016 [facility] tetanus toxoid vaccine, inactivated 0.5 ml, Route: IM, Dosing Weight 101.364, kg, ONCE, Start date: 04/25/16 12:00:00 CDT, Stop date: 04/25/16 12:00:00 CDT Inactive 04/25/2016 [facility] Clindamycin 600 mg, 50 mL, Rou te: IVPB, Drug form: INJ, ABXQ8H, Dosing Weight 101.364, kg, Start date: 04/25/16 12:00:00 CDT, Duration: 30 day, Stop date: 05/25/16 5:00:00 CDT Inactive 04/25/2016 [facility] Clonazepam Notes: (Same As: Filipe onoPIN) Inactive 04/25/2016 [facility] Morphine Notes: (Same as:MORPh ine Sulfate) Inactive 04/25/2016 [facility] Ondansetron Notes: (Same as: Alley garcia) MEDICATION WASTE Product Size: 4 mg Product Wasted: ___ mg Inactive 04/25/2016 [facility] clindamycin (ANES) Route: IV, Drug form: INJ, ONCE, Stop date: 04/25/16 9:20:00 CDT Inactive 04/25/2016 [facility] fentaNYL (ANES) Route: IV, Simon g form: INJ, ONCE, Stop date: 04/25/16 9:20:00 CDT Inactive 04/25/2016 [facility] midazolam (ANES) Route: IV, Dr ug form: SOLN, ONCE, Stop date: 04/25/16 9:20:00 CDT Inactive 04/25/2016 [facility] lidocaine (ANES) Route: IV, Dr ug form: INJ, ONCE, Stop date: 04/25/16 9:20:00 CDT Inactive 04/25/2016 [facility] propofol (ANES) Route: IV, Simon g form: INJ, ONCE, Stop date: 04/25/16 9:20:00 CDT Inactive 04/25/2016 [facility] ondansetron (ANES) Route: IV, Drug form: INJ, ONCE, Stop date: 04/25/16 9:20:00 CDT Inactive 04/25/2016 [facility] dexamethasone (ANES) Route: IV , Drug form: INJ, ONCE, Stop date: 04/25/16 9:20:00 CDT Inactive 04/25/2016 [facility] LR 1000 mL INJ (ANES) Route: I V, Total Volume: 1,000, Start date: 04/25/16 8:31:00 CDT, Stop date: 04/25/16 9:31:00 CDT Inactive 04/25/2016 [facility] Lactated Ringers 1,000 mL 1,00 0 mL, Rate: 40 ml/hr, Infuse over: 25 hr, Route: IV, Dosing Weight 101.364 kg, Total Volume: 1,000, Start date: 04/25/16 8:19:00 CDT, Duration: 30 day, Stop date: 05/25/16 8:18:00 CDT Inactive 04/25/2016 [facility] Amphetamine aspartate 5 MG / Amphetamine Sulfate 5 MG / Dextroamphetamine saccharate 5 MG / Dextroamphetamine Sulfate 5 MG Oral Tablet [Adderall] 20 mg = 1 tab, PO, BID, # 60 tab, 0 Refi ll(s) Active 04/25/2016 [facility] clonazePAM 1 mg oral tablet 1 mg = 1 tab, PO, BID, PRN Anxiety, # 60 tab, 0 Refill(s) Active 04/25/2016 [facility] 24 HR venlafaxine 75 MG Extended Release Capsule [Effexor] 75 mg = 1 cap, PO, Daily, # 30 cap, 0 Refill(s) Active 04/25/2016 [facility] Acetaminophen 325 MG / Hydrocodone Alexia trate 7.5 MG Oral Tablet 1 tab, PO, TID, PRN Pain Score 1-5, 0 Re fill(s) Active 04/25/2016 [facility] Morphine Notes: (Same as:MORPh ine Sulfate) No Longer Active 04/25/2016 [facility] Ondansetron Notes: (Same as: Alley garcia) MEDICATION WASTE Product Size: 4 mg Product Wasted: ___ mg No Longer Active 04/25/2016 [facility] Clindamycin 600 mg, 50 mL, Rou te: IVPB, Drug form: INJ, ABXQ8H, Dosing Weight 102.273, kg, Priority: STAT, Start date: 04/24/16 18:25:00 CDT, Duration: 3 day, Stop date: 04/27/16 10:25:00 CDT No Longer Active 04/24/2016 [facility] Zofran 4 mg, Route: IVP, Drug form: INJ, ONCE, Dosing Weight 102.273, kg, Priority: STAT, Start date: 04/24/16 15:30:00 CDT, Stop date: 04/24/16 15:30:00 CDT Inactive 04/24/2016 [facility] Morphine 4 mg, Route: IVP, ONC E, Dosing Weight 102.273, kg, Priority: STAT, Start date: 04/24/16 15:30:00 CDT, Stop date: 04/24/16 15:30:00 CDT Inactive 04/24/2016 [facility] Ketorolac Tromethamine 10 MG Oral Tablet 10 mg = 1 tab, PO, Q6H, X 5 day, # 20 tab, 0 Refill(s) Active 12/16/2015 [facility] Acetaminophen 325 MG / Hydrocodone Alexia trate 5 MG Oral Tablet [[place] 5/325] 1-2 tab, PO, Q4-6H, PRN Pain, X 5 day, # 15 tab, 0 Refill(s) Active 12/16/2015 [facility] Ciprofloxacin 500 MG Oral Tablet [Cipro] 500 mg = 1 tab, PO, Q12H, X 7 day, # 14 tab, 0 Refill(s) Active 12/16/2015 [facility] Ketorolac 4 days MEDICA TION WASTE Product Size: 60 mg Product Wasted: ___ mg Inactive 12/16/2015 [facility] Acetaminophen 325 MG / Hydrocodone Alexia trate 10 MG Oral Tablet [[place] 10/325] Notes: Do not exceed 4gm/day of acetamin ophen. (Same as: [place] 325/10) Inactive 12/16/2015 [facility] Allergies, Adverse Reactions, Alerts Substance Category Reaction Severity Reaction type Status Date Reported Comments Source Bactrim Assertion Drug allergy Active [facility] traMADol Assertion Drug allergy Active [facility] Immunizations Immunization Date Given Site Status Last Updated Comments Source tetanus-diphtheria toxoids Left Deltoid completed Juanito [facility] Results Order Name Results Value Reference Range Date Interpretation Comments Source CHEM PANEL eGFR 87 12/25/2017 Result Comment: The eGFR is calculated using the [...] from the National Kidney Disease Education Program (NKDEP) which additionally recommends that when the eGFR is used in patients with extremes of body mass index for purposes of drug dosing, the eGFR should be multiplied by the estimated BMI. [facility] CHEM PANEL Bili Total 0.6 0.2 - 1.3 12/25/2017 [facility] CHEM PANEL Alk Phos 72 39 - 136 12/25/2017 [facility] CHEM PANEL ALT 22 0 - 65 12/25/2017 [facility] CHEM PANEL AST 26 0 - 37 12/25/2017 [facility] CHEM PANEL Total Protein 6.5 6.4 - 8.4 12/25/2017 [facility] CHEM PANEL Albumin Lvl 3.3 3.5 - 5.0 12/25/2017 [facility] CHEM PANEL CO2 29 24 - 32 12/25/2017 [facility] CHEM PANEL Calcium Lvl 8.6 8.5 - 10.5 12/25/2017 [facility] CHEM PANEL Potassium Lvl 3.7 3.5 - 5.1 12/25/2017 [facility] CHEM PANEL Chloride Lvl 107 95 - 109 12/25/2017 [facility] CHEM PANEL Sodium Lvl 146 135 - 145 12/25/2017 [facility] CHEM PANEL Creatinine Lvl 0.83 0.50 - 1.40 12/25/2017 [facility] CHEM PANEL BUN 17 7 - 22 12/25/2017 [facility] CHEM PANEL Glucose Lvl 92 70 - 99 12/25/2017 [facility] CHEM PANEL AGAP 13.7 10.0 - 20.0 12/25/2017 [facility] CHEM PANEL Globulin 3.2 2.7 - 4.2 12/25/2017 [facility] CHEM PANEL B/C Ratio 20 6 - 25 12/25/2017 [facility] CHEM PANEL A/G Ratio 1.0 0.7 - 1.6 12/25/2017 [facility] HEMATOLOGY WBC 10.7 3.7 - 10.4 12/25/2017 [facility] HEMATOLOGY RDW 12.9 11.5 - 14.5 12/25/2017 [facility] HEMATOLOGY Platelet 222 133 - 450 12/25/2017 [facility] MPV 8.5 7.4 - 10.4 12/25/2017 [facility] Hct 40.3 36.0 - 48.0 12/25/2017 [facility] Hgb 13.8 12.0 - 16.0 12/25/2017 [facility] RBC 4.54 4.20 - 5.40 12/25/2017 [facility] MCHC 34.4 32.0 - 36.0 12/25/2017 [facility] HEMATOLOGY MCV 88.8 80.0 - 98.0 12/25/2017 [facility] MCH 30.5 27.0 - 31.0 12/25/2017 [facility] HEMATOLOGY Monocytes 5.9 2.0 - 12.0 12/25/2017 [facility] HEMATOLOGY Segs 43.1 45.0 - 75.0 12/25/2017 [facility] HEMATOLOGY Lymphocytes 46.2 20.0 - 40.0 12/25/2017 [facility] HEMATOLOGY Lymphocytes # 5.0 1.0 - 5.5 12/25/2017 [facility] HEMATOLOGY Basophils 0.5 0.0 - 1.0 12/25/2017 [facility] HEMATOLOGY Eosinophils 4.3 0.0 - 4.0 12/25/2017 [facility] HEMATOLOGY Segs-Bands # 4.6 1.5 - 8.1 12/25/2017 [facility] HEMATOLOGY Basophils # 0.1 0.0 - 0.2 12/25/2017 [facility] HEMATOLOGY Eosinophils # 0.5 0.0 - 0.5 12/25/2017 [facility] HEMATOLOGY Monocytes # 0.6 0.0 - 0.8 12/25/2017 [facility] LIPIDS CHD Risk 5.54 3.90 - 5.80 12/25/2017 [facility] LIPIDS LDL (Calculated) 115 <=99 mg/dL 12/25/2017 [facility] LIPIDS Trig 266 <=149 mg/dL 12/25/2017 [facility] LIPIDS Chol 205 <=199 mg/dL 12/25/2017 [facility] LIPIDS HDL 37 >=61 mg/dL 12/25/2017 [facility] LIPIDS VLDL 53 12/25/2017 [facility] SPECIAL CHEMISTRY Hgb A1C 5.2 <=5.6 % 12/25/2017 [facility] CARDIAC ENZYMES CK MB Index <4.2 0.0 - 2.5 12/24/2017 [facility] CARDIAC ENZYMES Total CK 24 12 - 191 12/24/2017 [facility] CARDIAC ENZYMES CK MB <1.0 0.5 - 3.6 12/24/2017 [facility] CARDIAC ENZYMES Troponin-I <0.02 0.00 - 0.40 12/24/2017 [facility] CHEM PANEL eGFR 108 12/24/2017 Result Comment: The eGFR is calculated using the [...] from the National Kidney Disease Education Program (NKDEP) which additionally recommends that when the eGFR is used in patients with extremes of body mass index for purposes of drug dosing, the eGFR should be multiplied by the estimated BMI. [facility] CHEM PANEL A/G Ratio 1.2 0.7 - 1.6 12/24/2017 [facility] CHEM PANEL Globulin 3.2 2.7 - 4.2 12/24/2017 [facility] CHEM PANEL CO2 27 24 - 32 12/24/2017 [facility] CHEM PANEL Calcium Lvl 8.8 8.5 - 10.5 12/24/2017 [facility] CHEM PANEL Total Protein 7.1 6.4 - 8.4 12/24/2017 [facility] CHEM PANEL ALT 25 0 - 65 12/24/2017 [facility] CHEM PANEL Albumin Lvl 3.9 3.5 - 5.0 12/24/2017 [facility] CHEM PANEL Sodium Lvl 142 135 - 145 12/24/2017 [facility] CHEM PANEL Potassium Lvl 3.5 3.5 - 5.1 12/24/2017 [facility] CHEM PANEL Chloride Lvl 104 95 - 109 12/24/2017 [facility] CHEM PANEL B/C Ratio 20 6 - 25 12/24/2017 [facility] CHEM PANEL AGAP 14.5 10.0 - 20.0 12/24/2017 [facility] CHEM PANEL Alk Phos 80 39 - 136 12/24/2017 [facility] CHEM PANEL AST 10 0 - 37 12/24/2017 [facility] CHEM PANEL Bili Total 0.6 0.2 - 1.3 12/24/2017 [facility] CHEM PANEL BUN 14 7 - 22 12/24/2017 [facility] CHEM PANEL Creatinine Lvl 0.69 0.50 - 1.40 12/24/2017 [facility] CHEM PANEL Glucose Lvl 100 70 - 99 12/24/2017 [facility] ENDOCRINOLOGY S Preg Ne gative *NA* (12/24/17 4:40 PM) Negative 12/24/2017 [facility] HEMATOLOGY Segs-Bands # 8.4 1.5 - 8.1 12/24/2017 [facility] HEMATOLOGY Basophils 1.0 0.0 - 1.0 12/24/2017 [facility] HEMATOLOGY Eosinophils 2.4 0.0 - 4.0 12/24/2017 [facility] HEMATOLOGY Basophils # 0.2 0.0 - 0.2 12/24/2017 [facility] HEMATOLOGY Eosinophils # 0.4 0.0 - 0.5 12/24/2017 [facility] HEMATOLOGY Monocytes 4.3 2.0 - 12.0 12/24/2017 [facility] HEMATOLOGY Lymphocytes 35.4 20.0 - 40.0 12/24/2017 [facility] HEMATOLOGY Segs 56.9 45.0 - 75.0 12/24/2017 [facility] HEMATOLOGY Monocytes # 0.6 0.0 - 0.8 12/24/2017 [facility] HEMATOLOGY Lymphocytes # 5.2 1.0 - 5.5 12/24/2017 [facility] HEMATOLOGY Platelet 277 133 - 450 12/24/2017 [facility] HEMATOLOGY MCH 30.0 27.0 - 31.0 12/24/2017 [facility] HEMATOLOGY MCHC 34.0 32.0 - 36.0 12/24/2017 [facility] HEMATOLOGY MPV 8.2 7.4 - 10.4 12/24/2017 [facility] HEMATOLOGY Hgb 14.5 12.0 - 16.0 12/24/2017 [facility] HEMATOLOGY RDW 12.9 11.5 - 14.5 12/24/2017 [facility] HEMATOLOGY Hct 42.8 36.0 - 48.0 12/24/2017 [facility] HEMATOLOGY MCV 88.3 80.0 - 98.0 12/24/2017 [facility] WBC 14.8 3.7 - 10.4 12/24/2017 [facility] RBC 4.85 4.20 - 5.40 12/24/2017 [facility] ELECTROLYTES Chloride Lvl 106 95 - 109 04/25/2016 [facility] ELECTROLYTES Calcium Lvl 8.7 8.5 - 10.5 04/25/2016 [facility] ELECTROLYTES Potassium Lvl 3.7 3.5 - 5.1 04/25/2016 [facility] ELECTROLYTES CO2 23 24 - 32 04/25/2016 [facility] ELECTROLYTES eGFR 117 04/25/2016 Result Comment: The eGFR is calculated using the [...] from the National Kidney Disease Education Program (NKDEP) which additionally recommends that when the eGFR is used in patients with extremes of body mass index for purposes of drug dosing, the eGFR should be multiplied by the estimated BMI. [facility] ELECTROLYTES Glucose Lvl 95 70 - 99 04/25/2016 [facility] ELECTROLYTES BUN 11 7 - 22 04/25/2016 [facility] ELECTROLYTES Creatinine Lvl 0.5 6 0.50 - 1.40 04/25/2016 [facility] ELECTROLYTES Sodium Lvl 140 135 - 145 04/25/2016 [facility] ELECTROLYTES AGAP 14.7 10.0 - 20.0 04/25/2016 [facility] HEMATOLOGY RDW 13.3 11.5 - 14.5 04/25/2016 [facility] MCHC 32.6 32.0 - 36.0 04/25/2016 [facility] HEMATOLOGY WBC 8.1 3.7 - 10.4 04/25/2016 [facility] HEMATOLOGY RBC 5.31 4.20 - 5.40 04/25/2016 [facility] Hgb 14.9 12.0 - 16.0 04/25/2016 [facility] MPV 8.3 7.4 - 10.4 04/25/2016 [facility] Platelet 206 133 - 450 04/25/2016 [facility] MCH 28.0 27.0 - 31.0 04/25/2016 [facility] HEMATOLOGY MCV 86.1 80.0 - 98.0 04/25/2016 [facility] Hct 45.7 36.0 - 48.0 04/25/2016 [facility] Segs 42.6 45.0 - 75.0 04/25/2016 [facility] Lymphocytes # 3.8 1.0 - 5.5 04/25/2016 [facility] HEMATOLOGY Monocytes # 0.4 0.0 - 0.8 04/25/2016 [facility] Lymphocytes 47.2 20.0 - 40.0 04/25/2016 [facility] Monocytes 5.2 2.0 - 12.0 04/25/2016 [facility] Segs-Bands # 3.5 1.5 - 8.1 04/25/2016 [facility] HEMATOLOGY Basophils 0.7 0.0 - 1.0 04/25/2016 [facility] HEMATOLOGY Eosinophils 4.3 0.0 - 4.0 04/25/2016 [facility] Basophils # 0.1 0.0 - 0.2 04/25/2016 [facility] Eosinophils # 0.4 0.0 - 0.5 04/25/2016 [facility] CHEM PANEL Lactic Acid Lvl 0.9 0.5 - 2.2 04/24/2016 [facility] CHEM PANEL A/G Ratio 1.0 0.7 - 1.6 04/24/2016 [facility] CHEM PANEL Globulin 3.6 2.7 - 4.2 04/24/2016 [facility] CHEM PANEL AGAP 11.9 10.0 - 20.0 04/24/2016 [facility] CHEM PANEL B/C Ratio 17 6 - 25 04/24/2016 [facility] CHEM PANEL eGFR 112 04/24/2016 Result Comment: The eGFR is calculated using the [...] from the National Kidney Disease Education Program (NKDEP) which additionally recommends that when the eGFR is used in patients with extremes of body mass index for purposes of drug dosing, the eGFR should be multiplied by the estimated BMI. [facility] CHEM PANEL Glucose Lvl 105 70 - 99 04/24/2016 [facility] CHEM PANEL BUN 11 7 - 22 04/24/2016 [facility] CHEM PANEL AST 17 0 - 37 04/24/2016 [facility] CHEM PANEL Alk Phos 95 39 - 136 04/24/2016 [facility] CHEM PANEL Bili Total 0.4 0.2 - 1.3 04/24/2016 [facility] CHEM PANEL Calcium Lvl 9.1 8.5 - 10.5 04/24/2016 [facility] CHEM PANEL Chloride Lvl 105 95 - 109 04/24/2016 [facility] CHEM PANEL Sodium Lvl 138 135 - 145 04/24/2016 [facility] CHEM PANEL Potassium Lvl 3.9 3.5 - 5.1 04/24/2016 [facility] CHEM PANEL Creatinine Lvl 0.64 0.50 - 1.40 04/24/2016 [facility] CHEM PANEL Albumin Lvl 3.6 3.5 - 5.0 04/24/2016 [facility] CHEM PANEL ALT 30 0 - 65 04/24/2016 [facility] CHEM PANEL CO2 25 24 - 32 04/24/2016 [facility] CHEM PANEL Total Protein 7.2 6.4 - 8.4 04/24/2016 [facility] HEMATOLOGY MCH 27.9 27.0 - 31.0 04/24/2016 [facility] HEMATOLOGY MCHC 33.0 32.0 - 36.0 04/24/2016 [facility] HEMATOLOGY MPV 8.2 7.4 - 10.4 04/24/2016 [facility] HEMATOLOGY Platelet 223 133 - 450 04/24/2016 [facility] HEMATOLOGY RDW 13.2 11.5 - 14.5 04/24/2016 [facility] HEMATOLOGY WBC 10.4 3.7 - 10.4 04/24/2016 [facility] HEMATOLOGY RBC 5.52 4.20 - 5.40 04/24/2016 [facility] HEMATOLOGY MCV 84.5 80.0 - 98.0 04/24/2016 [facility] HEMATOLOGY Hct 46.6 36.0 - 48.0 04/24/2016 [facility] HEMATOLOGY Hgb 15.4 12.0 - 16.0 04/24/2016 [facility] HEMATOLOGY Eosinophils # 0.3 0.0 - 0.5 04/24/2016 [facility] HEMATOLOGY Basophils # 0.1 0.0 - 0.2 04/24/2016 [facility] HEMATOLOGY Monocytes # 0.6 0.0 - 0.8 04/24/2016 [facility] HEMATOLOGY Segs-Bands # 5.0 1.5 - 8.1 04/24/2016 [facility] HEMATOLOGY Lymphocytes # 4.5 1.0 - 5.5 04/24/2016 [facility] HEMATOLOGY Basophils 1.1 0.0 - 1.0 04/24/2016 [facility] HEMATOLOGY Segs 47.9 45.0 - 75.0 04/24/2016 [facility] HEMATOLOGY Eosinophils 2.6 0.0 - 4.0 04/24/2016 [facility] HEMATOLOGY Monocytes 5.4 2.0 - 12.0 04/24/2016 [facility] Lymphocytes 43.0 20.0 - 40.0 04/24/2016 [facility] URINE AND STOOL UA Urobilinogen <=1.0 mg/dL 0.1 - 1.0 12/16/2015 [facility] URINE AND STOOL UA Amorph Silvina Occasional /HPF None Seen /HPF 12/16/2015 [facility] URINE AND STOOL UA Mucus Few /LPF None Seen /LPF 12/16/2015 [facility] URINE AND STOOL UA Nitrite Negative (12/16/15 12:32 PM) Negative 12/16/2015 [facility] URINE AND STOOL UA Glucose Negative mg/dL Negative mg/dL 12/16/2015 [facility] URINE AND STOOL UA Protein Negative mg/dL Negative mg/dL 12/16/2015 [facility] URINE AND STOOL UA Leuk Est Negative (12/16/15 12:32 PM) Negative 12/16/2015 [facility] URINE AND STOOL UA Blood Negative (12/16/15 12:32 PM) Negative 12/16/2015 [facility] URINE AND STOOL UA Bili Negative *NA* (5/5/16 12:32 PM) Negative 12/16/2015 [facility] URINE AND STOOL UA WBC 6 0 - 5 12/16/2015 [facility] URINE AND STOOL UA Sq Epi Occasional /LPF Few /LPF 12/16/2015 [facility] URINE AND STOOL UA Bacteria Moderate /HPF None Seen /HPF 12/16/2015 [facility] URINE AND STOOL UA RBC 6 0 - 2 12/16/2015 [facility] URINE AND STOOL UA Color Yellow *NA* (12/16/15 12:32 PM) Yellow 12/16/2015 [facility] URINE AND STOOL UA Spec Grav 1.018 <=1.030 12/16/2015 [facility] URINE AND STOOL UA Turbidity Slight *ABN* (12/16/15 12:32 PM) Clear 12/16/2015 [facility] URINE AND STOOL UA Ketones Negative mg/dL Negative mg/dL 12/16/2015 [facility] URINE AND STOOL UA pH 5.0 5.0 - 8.0 12/16/2015 [facility] Pathology Reports No Data Provided for This Section Diagnostic Reports Report Value Date Source Brain wo contrast CT Clinical Indication: Left neck pain. Concern for intracranial abnormality. Comparison: None TECHNIQUE: CT images were obtained from the foramen magnum to the vertex without the use of intravenous contrast on a multidetector CT. Coronal and sagittal reconstructions were obtained. CT radiation dose DLP: 901.26 mGy-cm FINDINGS: BRAIN PARENCHYMA: The denis-white differentiation is preserved without CT evidence of acute territorial infarction. There is no mass effect, midline shift or edema. There are no intra-axial or extra-axial fluid collections, intraventricular or intraparenchymal hemorrhage. VENTRICLES: The ventricles are appropriate for the patient's stated age. There is no evidence of hydrocephalus. The basilar cisterns are within normal limits. ORBITS, MASTOIDS AND PARANASAL SINUSES: The visualized paranasal sinuses are well aerated. The visualized orbits are unremarkable. The mastoid air cells are clear. SKULL: There are no osseous abnormalities. If there is further concern for intracranial pathology or acute stroke, MRI of the brain may be performed for complete assessment. IMPRESSION: No acute intracranial hemorrhage or mass effect. No CT evidence of acute territorial infarction. SL: KPAROSA 12/24/2017 [facility] Neck soft tissue w contrast CT Clinical Indication: Left neck pain for 2 weeks. Comparison: None Technique: CT of the neck is performed with a multidetector CT. Coronal and sagittal reconstructions were obtained. CONTRAST: 100 mL of IV Omnipaque contrast material was used for the exam. CT Radiation Dose DLP 338.15 mGy-cm FINDINGS: SOFT TISSUES: There are no neck masses noted. There are no fluid collections or abscess. LYMPH NODES: There is no submandibular lymphadenopathy. There is no jugular chain or posterior cervical chain lymphadenopathy or masses. The nasopharyngeal adenoids and tonsillar pillar regions appear unremarkable. SALIVARY GLANDS: The submandibular and parotid glands are unremarkable. PARANASAL SINUSES AND AIRWAY: There are small mucous retention cysts versus polyps within the maxillary sinuses. The nasopharyngeal, oropharyngeal, supraglottic and infraglottic airway is unremarkable. SUPRAHYOID NECK: The oropharynx, oral cavity, parapharyngeal space, and retropharyngeal space are within normal limits. INFRAHYOID NECK: The valleculae and piriform sinuses are within normal limits. The larynx, hypopharynx, epiglottis and supraglottis are unremarkable. ORBITS: The visualized orbits are unremarkable. VASCULAR STRUCTURES: The jugular veins and carotid vessels are unremarkable. There is moderate left vertebral artery luminal narrowing. A suspected crescentic-shaped intramural hematoma along the anterior aspect the left vertebral artery extending from the C3 and C4 transverse foramina (axial series 5, images 25-38; sagittal series 601, images 32-34). OSSEOUS STRUCTURES: There are no fractures or dislocations. There are no lucencies at the bases of the mandibular teeth to suggest abscess. There are no radiopaque foreign bodies noted. THYROID GLANDS: The thyroid lobes are symmetric and there are no lesions. VISUALIZED LUNG APICES: There are no pulmonary masses or consolidation. If there is further concern for neck masses or malignancy, PET/CT imaging or MRI of the neck should be performed for complete assessment. IMPRESSION: Suspect dissection of the left vertebral artery extending from the C3-C4 transverse foramina. If indicated, further evaluation with MRA of the neck including axial T1 fat-sat sequences can be performed. The findings were discussed with Dr. Schaeffer via telephone on 12/24/2017 at 9:35 PM central time. SL: EMMA 12/24/2017 [facility] Chest 1view DX Clinical Indica tion: Chest pain - Comparison: None Technique: X-ray chest frontal projection FINDINGS: There is no consolidation, pleural effusion or pneumothorax. The heart is normal in size. The mediastinum and shan are unremarkable. The visualized bones and soft tissues are within normal limits. IMPRESSION: No chest radiographic evidence of acute cardiopulmonary disease. SL: [email or web address] 12/24/2017 [facility] Pelvis w IV contrast CT EXAM: Pelvis w IV contrast CT DATE: 04/24/2016 5:53 PM CDT INDICATION: Foreign body, post operative COMPARISON: Right hip radiograph of 04/24/2016. Multiple contiguous axial images of the pelvis [...] body. Please correlate clinically. 2. Postoperative hysterectomy. SL: [id number] 04/24/2016 [facility] Hip 2/3 views uni DX Study: Ri ght hip, 2 views Clinical Indication: Erythema Comparison: [...] proximal right thigh, compatible with foreign body. SL: [id number] 04/24/2016 [facility] Consultation Notes No Data Provided for This Section Discharge Summaries No Data Provided for This Section History and Physicals No Data Provided for This Section Vital Signs Vital Sign Value Date Comments Source Respitory Rate 19 12/25/2017 [facility] Systolic (mm Hg) 108 12/25/2017 [facility] Diastolic (mm Hg) 72 12/25/2017 [facility] Heart Rate 61 12/25/2017 [facility] Respitory Rate 18 12/25/2017 [facility] Temperature Oral (F) 97.7 F 12/25/2017 [facility] Heart Rate 66 12/25/2017 [facility] Temperature Oral (F) 97.9 F 12/25/2017 [facility] Respitory Rate 18 12/25/2017 [facility] Systolic (mm Hg) 104 12/25/2017 [facility] Diastolic (mm Hg) 63 12/25/2017 [facility] Temperature Oral (F) 98.0 F 12/25/2017 [facility] Systolic (mm Hg) 123 12/25/2017 [facility] Diastolic (mm Hg) 85 12/25/2017 [facility] Heart Rate 63 12/25/2017 [facility] Height 165.1 cm 12/25/2017 [facility] BMI Calculated 37.73 12/25/2017 [facility] Weight 102.841 12/25/2017 [facility] Respitory Rate 14 04/25/2016 [facility] Respitory Rate 18 04/25/2016 [facility] Heart Rate 93 04/25/2016 [facility] Systolic (mm Hg) 138 04/25/2016 [facility] Diastolic (mm Hg) 91 04/25/2016 [facility] Temperature Oral (F) 98 F 04/25/2016 [facility] Systolic (mm Hg) 122 04/25/2016 [facility] Diastolic (mm Hg) 81 04/25/2016 [facility] Respitory Rate 18 04/25/2016 [facility] Heart Rate 65 04/25/2016 [facility] Systolic (mm Hg) 116 04/25/2016 [facility] Diastolic (mm Hg) 77 04/25/2016 [facility] Heart Rate 72 04/25/2016 [facility] Temperature Oral (F) 97.8 F 04/25/2016 [facility] Temperature Oral (F) 97.9 F 04/25/2016 [facility] BMI Calculated 37.19 04/25/2016 [facility] Weight 101.364 04/25/2016 [facility] Height 165.1 cm 04/25/2016 [facility] Weight 102.273 04/24/2016 [facility] BMI Calculated 37.52 04/24/2016 [facility] Height 165.1 cm 04/24/2016 [facility] Respitory Rate 18 12/16/2015 [facility] Heart Rate 91 12/16/2015 [facility] Temperature Oral (F) 98.7 F 12/16/2015 [facility] Systolic (mm Hg) 114 12/16/2015 [facility] Diastolic (mm Hg) 80 12/16/2015 [facility] Systolic (mm Hg) 116 12/16/2015 [facility] Diastolic (mm Hg) 81 12/16/2015 [facility] Temperature Oral (F) 98.9 F 12/16/2015 [facility] Heart Rate 93 12/16/2015 [facility] Respitory Rate 18 12/16/2015 [facility] BMI Calculated 37.2 12/16/2015 [facility] Weight 104.545 12/16/2015 [facility] Height 167.64 cm 12/16/2015 [facility] Encounters Location Location Details Encounter Type Encounter Number Reason For Visit Attending Provider ADM Date DC Date Status Source [facility] [id number] Sergei Chetan 12/16/2015 12/16/2015 [facility] Inpatient [id number] Halina 04/24/2016 04/25/2016 [facility] Inpatient [id number] Hector Mariedasha 12/24/2017 12/25/2017 [facility] Procedures Procedure Code Date Perfomer Comments Source Appendectomy [id number] [facility] Cholecystectomy [id number] [facility] Partial hysterectomy [id number] [facility] Spinal fusion [id number] [facility] Assessment and Plan Assessment and Plan Date Source Extracted from:Title: [facility] Hospitalist Service Discharge Summary Author: Sabino Johnston MD Date: 12/25/17 [facility] Hospitalist Service Discharge Summary PATIENT NAME:JENY MORALES ATTENDING: SABINO HOFFMAN JR, MD ADMISSION DATE:12/24/2017 15:06 DISCHARGE DATE:12/25/2017 09:24 DISCHARGE DIAGNOSIS: 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 DISCHARGE MEDICATIONS: PLEASE SEE R FOR DETAILS PERTAINING TO DISCHARGE MEDICATIONS DISCHARGE FOLLOWUP: Unable to provide as patient left AMA. A total of 0 minutes was spent planning discharge which included bedside counseling. 12/25/2017 [facility] Extracted from:Title: Surgery Staff Author: Halina Sun MD Date: 04/25/16 Surgery Staff Progress Note Halina Sun M.D. cc: foreign body RLE/groin SUBJECTIVE: Feeling well since removal of foreign body. The pain she came in with from the needle is gone. The ladonna drain from the OR has already fallen out as she was ambulating the halls. Feels ready to go home. OBJECTIVE: Physical Exam: gen - NAD, in bed Vitals Tmp(F) Pulse BP RR SpO2 FIO2 04/25 16:23 ---- --- ----- 1 4 98 21% 04/25 12:10 ---- 65 122/81 1 8 92 --- 04/25 11:40 ---- 72 116/77 1 9 91 --- 04/25 11:25 ---- 70 120/77 1 8 90 --- 04/25 11:10 ---- 73 115/72 1 8 --- --- 24 Hr Tmax: 98.5F (36.94c) at 04/24 20:0 0 Vital Signs are the last 5 in the past 48 hours. I&O Record In Out Bal 04/25 24hr Tot 1416 10 1406 04/24 24hr Tot 52 0 52 Labs (Last four charted values) WBC 8.1 (APR 25) 10.4 (APR 24) Hgb 14.9 (APR 25) 15.4 (APR 24) Hct 45.7 (APR 25) 46.6 (APR 24) Plt 206 (APR 25) 223 (APR 12) Na 140 (APR 13) 138 (APR 24) K 3.7 (APR 25) 3.9 (APR 24) CO2 L 23 (APR 13) 25 (APR 12) Cl 106 (APR 13) 105 (APR 12) Cr 0.56 (APR 13) 0.64 (APR 12) BUN 11 (APR 13) 11 (APR 12) Glucose Random 95 (APR 25) H 105 (APR 24) Ca 8.7 (APR 25) 9.1 (APR 24) ASSESSMENT: 41 year old woman with [...] dry. 7. Call Halina Sun MD at [phone] for: fever of 101.5 degrees F or higher, any big increase in abdominal pain, any redness/drainage from incisions, any persistent nausea/emesis, or any questions or concerns. Discussed with patient and RN. All questions answered. Extracted from:Title: Surgery Staff Author: Halina Sun MD Date: 04/25/16 HISTORY AND PHYSICAL HALINA SUN MD CC: foreign body in RLE HPI: 41 year old woman with morbid obesity wh o attempted self drainage of a RIGHT thigh/groin abscess ~5 days ago with a sewing needle. She has had multiple abscesses before in the region and has had drainage both by herself and medical program specialist. This time, when she tried to drain her abscess, she lost the needle in her soft tissue. She could not retrieve it. She left it in there but began having worsening pain in the region up until yesterday when [place] [facility] [place] as she couldn't take [...] heme/lymph, allergic, skin/breast) EXCEPT per HPI EXAM: Vitals Tmp(F) Pulse BP RR SpO2 FIO2 04/25 08:05 97.6 69 115/59 1 5 95 --- 04/25 04:00 97.9 72 118/75 1 8 --- --- 04/25 00:00 98.2 70 119/76 1 8 --- --- 04/24 21:57 ---- --- ----- - - 98 --- 04/24 21:09 ---- 89 134/82 - - --- --- 24 Hr Tmax: 98.5F (36.94c) at 04/24 20:0 0 Vital Signs are the last 5 in the past 48 hours. I&O Record In Out Bal 04/24 24hr Tot 52 0 52 04/23 24hr Tot 0 0 0 GENERAL/CONSTITUTIONAL - NAD, [...] palpable Labs (Last four charted values) WBC 8.1 (APR 13) 10.4 (APR 24) Hgb 14.9 (APR 13) 15.4 (APR 24) Hct 45.7 (APR 13) 46.6 (APR 12) Plt 206 (APR 13) 223 (APR 12) Na 140 (APR 13) 138 (APR 12) K 3.7 (APR 13) 3.9 (APR 12) CO2 L 23 (APR 13) 25 (APR 12) Cl 106 (APR 13) 105 (APR 12) Cr 0.56 (APR 13) 0.64 (APR 12) BUN 11 (APR 25) 11 (APR 12) Glucose Random 95 (APR 25) H 105 (APR 12) Ca 8.7 (APR 25) 9.1 (APR 24) Study: Right hip, 2 views Clinical [...] live with the pain. All questions answered. 04/25/2016 [facility] Plan of Care No Data Provided for This Section Social History Social History Date Source Social History TypeResponse Substance Abuse Use: None. Alcohol Never Smoking Status Current every day smoker; Type: Cigarettes; Lives with someone who smokes; Cigarette Smoking Last 365 Days No; Reg Smoking Cessation Counseling No; Tobacco use per day: 1; entered on: 12/24/17 04/25/2016 [facility] Family History No Data Provided for This Section Advance Directives No Data Provided for This Section Functional Status No Data Provided for This Section
[2020-01-23] MEDS ORDERED: KETOROLAC TROMETHAMINE 30 MG/ML VIAL IV STA (04:56)
--- NOTE | 2020-01-23 05:04 | Emergency Department Note ---
History of Present Illnes History of Present Illness Chief Complaint: Abdominal Complaints History of Present Illness This is a 44 year old female REPORTS WAS SEEN AT THIS FACILITY YESTERDAY FOR PRE-OP FOR SCHEDULED LITHOTRIPSY TODAY, SEND HOME AND INSTRUCTED TO CALL DR. JONES COVID SWAB WOULD NOT BE RESULTED "IN TIME FOR MY SURGERY" PER PT; DR. JONES INSTRUCTED PT TO COME TO ED AND TO "NOT LEAVE THIE ER UNTIL HE (DR. JONES) WAS CONTACTED" BY ED PHYSICIAN; PT REPORTS PAIN TO BILATERAL FLANK;. PT REPORTS THIS PAIN HAS BEEN PRESENT SINCE JULY Historian: Patient Arrival Mode: Car Onset (how long ago): month(s) (6) Location: BILATERAL FLANK Quality: PAIN Radiation: Reports non-radiation Severity: moderate Onset quality: gradual Duration (how long): month(s) (6) Timing of current episode: constant Progression: waxing and waning Chronicity: chronic Context: Denies recent illness, Denies recent surgery Relieving factors: none Exacerbating factors: none Associated symptoms: Reports denies other symptoms Treatments prior to arrival: none Past Medical/Family History Physician Review I have reviewed the patient's past medical and family history. Any updates have been documented here. Past Medical History Recent Fever: No Clinical Suspicion of Infectio: No New/Unexplained Change in Ment: No Past Medical History: Hypertension, CHF, CAD, Migraines, Hyperlipedemia, Chronic Back Pain Other Medical History: ADD DEPRESSION ANXIETY Past Surgical History: Cholecysctectomy, Hysterectomy Other Surgery: spinal fusion Social History Smoking Cessation: Never Smoker Alcohol Use: Occasional Any Illegal Drug Use: No Family History Family history of heart diseas: No Other family history HTN Other Last Tetanus: unknown Review of Systems Review of Systems Constitutional: Reports no symptoms EENTM: Reports no symptoms Cardiovascular: Reports no symptoms Respiratory: Reports no symptoms Gastrointestinal: Reports no symptoms Genitourinary: Reports as per HPI Musculoskeletal: Reports no symptoms Integumentary: Reports no symptoms Neurological: Reports no symptoms Psychological: Reports no symptoms Endocrine: Reports no symptoms Hematological/Lymphatic: Reports no symptoms Physical Exam Related Data Allergies: Coded Allergies: sulfamethoxazole (Verified Allergy, Mild, 12/30/17) trimethoprim (Verified Allergy, Mild, 12/30/17) naproxen (Verified Allergy, Unknown, 12/30/17) tramadol (Verified Allergy, Unknown, 12/30/17) Triage Vital Signs Vital Signs Date Time Temp Pulse Resp B/P (MAP) Pulse Ox O2 Delivery O2 Flow Rate FiO2 01/23/20 04:47 98.8 98 17 138/92 97 Vital signs reviewed: Yes Physical Exam CONSTITUTIONAL Constitutional: Reports well-developed, Reports well-nourished HENT HENT: Reports normocephalic, Reports atraumatic, Reports oropharynx clear/moist, Reports nose normal HENT L/R: Reports left ext ear normal, Reports right ext ear normal EYES Eyes: Reports PERRL, Reports conjunctivae normal NECK Neck: Reports ROM normal PULMONARY Pulmonary: Reports effort normal, Reports breath sounds normal CARDIOVASCULAR Cardiovascular: Reports regular rhythm, Reports heart sounds normal, Reports capillary refill normal, Reports normal rate GASTROINTESTINAL Abdominal: Reports soft, Reports nontender, Reports bowel sounds normal, Reports left CVA tenderness (MILD), Reports right CVA tenderness (MILD) GENITOURINARY Genitourinary: Reports exam deferred SKIN Skin: Reports warm, Reports dry MUSCULOSKELETAL Musculoskeletal: Reports ROM normal NEUROLOGICAL Neurological: Reports alert, Reports oriented x 3, Reports no gross motor or sensory deficits PSYCHOLOGICAL Psychological: Reports mood/affect normal, Reports judgement normal Assessment & Plan Medical Decision Making MDM Patient with a kidney stone presents with bilateral flank pain since July. States Dr. Jones sent he requests CBC CMP UA and a KUB at this time to evaluate for kidney stone states patient has a history of a 1.5 cm stone in the right kidney in to be seen in the ER because she needs lithotripsy. I spoke with Dr. Jones requests CBC CMP UA urine culture and a KUB due to patient's history of a 1.5 cm stone in the right kidney. toradol 30 mg iv ordered I SPOKE WITH DR JONES AND CHEMO MCKINNEY(CNO), DISCHARGE PT, SEND PT TO ADMITTING FOR OUTPATIENT LITHOTRIPSY Assessment & Plan Final Impression: (1) Ureterolithiasis (2) Renal colic Last Vital Signs Date Time Temp Pulse Resp B/P (MAP) Pulse Ox O2 Delivery O2 Flow Rate FiO2 01/23/20 04:47 98.8 98 17 138/92 97 Home Meds Reported Medications [invokana] No Conflict Check, 80 daily 06/02/13 Hydrocodone Bit/Acetaminophen (NORCO 7.5-325 TABLET) 1 Each Tablet, prn 06/02/13 Lisinopril (PRINIVIL) 20 Mg Tablet, daily 06/02/13 Venlafaxine Hcl (EFFEXOR XR) 150 Mg Cap.er.24h, daily 06/02/13 Medications in the ED Ketorolac Tromethamine 30 mg ONCE STAT IV ; Start 01/23/20 at 04:56; Stop 08/01 at 04:57; Status UNV DANIELE MENENDEZ MD Jan 23, 2020 05:04
[2020-01-23 05:39] LABS: BASOPHILS % 0.4 % (0.0-1.0); EOSINOPHILS # (AUTO) 0.3 (0.0-0.4); HEMATOCRIT 41.5 % (34.2-44.1); LYMPHOCYTES # (AUTO) 3.2 (1.0-3.2); LYMPHOCYTES % 41.3 % (18.0-39.1); MEAN CORPUSCULAR HGB CONC 31.3 g/dL (31-35); MEAN CORPUSCULAR VOLUME 86.3 fL (81-99); MONOCYTES # (AUTO) 0.5 (0.2-0.8); MONOCYTES % 6.1 % (4.4-11.3); NEUTROPHILS # (AUTO) 3.7 (2.1-6.9); NEUTROPHILS % 47.9 % (38.7-80.0); PLATELET COUNT 281 x10e3/uL (140-360); RED BLOOD COUNT 4.81 x10e6/uL (3.6-5.1); RED CELL DISTRIBUTION WIDTH 14.1 % (11.7-14.4)
[2020-01-23 05:43] LABS: CLARITY,URINE CLEAR (CLEAR); COLOR,URINE YELLOW (YELLOW)
[2020-01-23 05:44] LABS: LEUKOCYTE ESTERASE ,URINE SMALL (NEGATIVE); NITRITE,URINE NEGATIVE (NEGATIVE); PROTEIN,URINE DIPSTICK 2+ (NEGATIVE)
[2020-01-23 05:45] LABS: BILIRUBIN,URINE NEGATIVE (NEGATIVE); KETONES,URINE NEGATIVE (NEGATIVE); URINE UROBILINOGEN 0.2 mg/dL (0.2 - 1)
[2020-01-23] MEDS ORDERED: ONDANSETRON HCL INJ 2MG/ML 2ML 2 MG/ML VIAL IV STA (05:47)
[2020-01-23 05:53] LABS: INR 0.84
--- NOTE | 2020-01-23 05:53 | Diagnostic Imaging Report ---
EXAM: Abdomen Views INDICATION: ^eval for renal stone, h/o 1.5 cm stone right ^[id number] ^0530 ^Y COMPARISON: None available. FINDINGS: Nonobstructive bowel gas pattern. No signs of pneumoperitoneum. Stool throughout the colon, suggestive of constipation. 1 cm calcification projecting over right renal inferior pole shadow. 0.7 cm calcification projecting over left renal shadow. No acute osseous abnormality. Lower lumbar spine fusion hardware. Pelvic phleboliths. Surgical clips projecting over right iliac and lower lumbar spine. IMPRESSION: 1. 1 cm right renal calculus. 2. 0.7 cm left renal calculus. 3. Nonobstructive bowel gas pattern. Signed by: Dr. Bruce Serna MD on 01/23/2020 5:50 AM
[2020-01-23 05:54] LABS: PARTIAL THROMBOPLASTIN TIME 24.7 seconds (23.8-35.5)
[2020-01-23] MEDS ORDERED: ONDANSETRON HCL INJ 2MG/ML 2ML 2 MG/ML VIAL ONE (05:54)
[2020-01-23 06:05] LABS: ALANINE AMINOTRANSFERASE 16 IU/L (0-55); ALBUMIN 3.5 g/dL (3.5-5.0); ALKALINE PHOSPHATASE 113 IU/L (40-150); ANION GAP 16.9 mmol/L (8-16); CALCIUM 8.4 mg/dL (8.4-10.2); CARBON DIOXIDE 20 mmol/L (22-29); CHLORIDE 106 mmol/L (98-107); CREATININE, SERUM 0.73 mg/dL (0.57-1.11); EST GLOMERULAR FILTRATION RATE > 60 ML/MIN (60-); GLUCOSE 105 mg/dL (74-118); POTASSIUM 3.9 mmol/L (3.5-5.1); SODIUM 139 mmol/L (136-145)
[2020-01-23 06:48] LABS: BLOOD UREA NITROGEN 13 mg/dL (7-26); BUN/CREATININE RATIO 19 (6-25)
[2020-01-23 06:58] LABS: BACTERIA,URINE RARE /HPF; EPITHELIAL CELLS,URINE FEW /LPF; RBC,URINE 21-50 /HPF (0-5); WBC,URINE (MAN) 21-50 /HPF (0-5)
[2020-01-23] MEDS ORDERED: METOPROLOL SUCC50 MG PO ×2 (11:05)
[2020-01-23] MEDS ORDERED: FISH OIL 1,0001 EAC2 PEG (11:05)
[2020-01-23] MEDS ORDERED: ASPIRIN325 MG PO (11:05)
[2020-01-23] MEDS ORDERED: ATORVASTATIN CA20 MG PO (11:05)
[2020-01-23] MEDS ORDERED: CLOPIDOGREL75 MG PO (11:05)
[2020-01-23] MEDS ORDERED: LASIX20 MG PO (11:05)
== END 2020-01-23 07:13 | disposition home or self-care (01) ==
LOC: ER 04:38
DX: M54.5 Low back pain (principal); N20.1 Calculus of ureter; I10 Essential (primary) hypertension; E78.5 Hyperlipidemia, unspecified; I50.9 Heart failure, unspecified; I25.10 Atherosclerotic heart disease of native coronary artery without angina pectoris
CPT/HCPCS: 36415; 74018; 80053; 81001; 85025; 85610; 85730; 87086; 87186; 99284; J1885; J2405

== ENCOUNTER → 2020-01-23 | Day surgery (SDC) | payer OTHER ==
[~2020-01-23] MED LIST changes: +ASPIRIN325 MG PO; +ATORVASTATIN CA20 MG PO; +B&O 60MG R/S 60 MG SUPP PR ONE; +CEFTRIAXONE SOD 1 GM/NS 50 ML 50 ML IV ONE; +CLOPIDOGREL75 MG PO; +DEXAMETHASONE SOD PHOS INJ 4 MG/ML VIAL ONE; +ESMOLOL HCL 100MG/10ML 10 MG/ML VIAL ONE; +FENTANYL CITRATE/PF 100MCG/2 ML INJ ONE; +FISH OIL 1,0001 EAC2 PEG; +HYDROMORPHONE 1MG/1ML INJ ONE; +IOPAMIDOL 300MG/ML 50ML INFUS..BTL IV ONE; +KETOROLAC TROMETHAMINE 30 MG/ML VIAL ONE; +LASIX20 MG PO; +LIDOCAINE HCL 2% LOCAL INJ 5 ML SDV VIAL INJ ONE; +METOPROLOL SUCC50 MG PO; +METOPROLOL TARTRATE INJ 1 MG/ML VIAL ONE; +MIDAZOLAM HCL 2 MG/2 ML VIAL ONE; +ONDANSETRON HCL INJ 2MG/ML 2ML 2 MG/ML VIAL ONE; +PROPOFOL IV EMULSION 10 MG/ML 20 ML VIAL ONE; +SEVOFLURANE INHAL SOLN 250 ML PEN BTL ONE
[2020-01-23 16:10] VITALS: BP 142/96
--- NOTE | 2020-03-02 02:57 | Operative Report ---
DATE OF PROCEDURE: 01/23/2020 SURGEON: Geo Jones MD PREOPERATIVE DIAGNOSES: 1. Right nephrolithiasis. 2. Hydronephrosis. 3. Hematuria. 4. Urinary tract infections. 5. Mixed type urinary incontinence. POSTOPERATIVE DIAGNOSES: 1. Right nephrolithiasis. 2. Hydronephrosis. 3. Hematuria. 4. Urinary tract infections. 5. Mixed type urinary incontinence. 6. Grade 2 cystocele. 7. Urethral hypermobility. 8. Grade 1 rectocele. OPERATIONS PERFORMED: Note, these were all staged procedures as part of multi-staged and multi-step process in managing the patient's urolithiasis. 1. Right-sided extracorporeal shockwave lithotripsy (separate procedure performed for the 1.4 cm right renal pelvic stone). 2. Cystourethroscopy with bilateral ureteral catheterization and retrograde ureteropyelography (separate procedure performed for hematuria and urinary tract infections). 3. Interpretation of retrograde ureteropyelography. 4. Supervision of fluoroscopy, no radiologist present. 5. Cystourethroscopy with insertion of right indwelling ureteral stent (separate procedure performed to relieve the hydronephrosis). 6. Pelvic examination under anesthesia. ANESTHESIA: General. COMPLICATIONS: None. CLINICAL SUMMARY: Jacqueline Ramirez is a 44-year-old woman with bilateral nephrolithiasis. She was brought for the first part of multistage process. She is aware of the risks of bleeding, infection, injury to adjacent structures, need for additional procedures and elected to proceed. OPERATIVE PROCEDURE IN DETAIL: Informed consent was verified, taken to the operating room and placed in a lithotripsy table in supine position. Anesthesia was uneventfully begun. The patient's large right nephrolithiasis was localized with biplanar fluoroscopy. A total of 3000 shocks were delivered with excellent fragmentation. The patient was carefully and gently repositioned in dorsal lithotomy position with all pressure points well padded. Her genitalia were prepared and draped in usual sterile fashion. The cystoscope was inserted into the patient's urethra and bladder was drained. A panendoscopy was unremarkable. There were no tumors and there were no stones. A ureteral catheter was used to cannulate each ureter and retrograde ureteropyelograms were performed. With cystoscope and fluoroscopic guidance, a right-sided indwelling ureteral stent was then placed, it was coiled into the patient's kidney as well as the patient's bladder. The retaining suture was cut short. Interpretation of retrograde ureteropyelography contrast was instilled in retrograde fashion bilaterally. There was hydronephrosis and multiple filling defects in the right renal pelvis consistent with prior lithotripsy and an obstructing stone. The stent was in good position, it was coiled into the patient's kidney as well as the patient's bladder. The left side exhibited a 7 mm stone in the mid upper portion of the kidney. The stone, of course, was not treated, but there was no hydronephrosis in this side. The patient's bladder was drained. Cystoscope was withdrawn. Pelvic examination revealed a grade 2 cystocele with urethral hypermobility and grade 1 rectocele. The patient was then uneventfully reversed from anesthesia and taken to recovery room in stable condition. There were no complications of the procedure. She tolerated the procedure well. We will plan on returning the patient to the operating room for left ESWL as well as for right ureteroscopy with laser standby. Geo Jones MD [place]/MODL /[id number] cc: Sharifa Aggarwal MD
== END | disposition home or self-care (01) ==
LOC: OR 07:27
PROVIDERS: ATTEND Urology
DX: N20.0 Calculus of kidney (principal); N13.30 Unspecified hydronephrosis; N39.0 Urinary tract infection, site not specified; N39.46 Mixed incontinence; N81.10 Cystocele, unspecified; N36.41 Hypermobility of urethra; N81.6 Rectocele; R35.1 Nocturia; I12.9 Hypertensive chronic kidney disease with stage 1 through stage 4 chronic kidney disease, or unspecified chronic kidney disease; N18.9 Chronic kidney disease, unspecified; E66.9 Obesity, unspecified; J45.909 Unspecified asthma, uncomplicated; I25.10 Atherosclerotic heart disease of native coronary artery without angina pectoris; K21.9 Gastro-esophageal reflux disease without esophagitis; I25.2 Old myocardial infarction; Z01.810 Encounter for preprocedural cardiovascular examination; Z01.812 Encounter for preprocedural laboratory examination; Z11.59 Encounter for screening for other viral diseases; Z88.6 Allergy status to analgesic agent; Z88.8 Allergy status to other drugs, medicaments and biological substances; Z68.36 Body mass index [BMI] 36.0-36.9, adult; Z95.5 Presence of coronary angioplasty implant and graft; Z86.73 Personal history of transient ischemic attack (TIA), and cerebral infarction without residual deficits; Z80.51 Family history of malignant neoplasm of kidney
CPT/HCPCS: 36415; 50590; 52332; 83970; 84550; 87086; 87635; C2617; J0696; J1100; J1170; J1885; J2001; J2250; J2405; J2704; J3010; Q9967; U0002

== ENCOUNTER → 2020-03-12 | Day surgery (SDC) | payer OTHER ==
--- NOTE | 2020-03-10 15:03 | Diagnostic Imaging Report ---
EXAM: CHEST 2 VIEWS DATE: 03/10/2020 2:30 PM INDICATION: Preoperative evaluation COMPARISON: None FINDINGS: The trachea is midline. The lungs are symmetrically expanded without evidence for large focal consolidation, pneumothorax, or significant pleural effusion. The cardiomediastinal silhouette and pulmonary vasculature are within normal limits. There is mild extra scoliosis of the thoracolumbar spine. No acute osseous abnormality is identified. The surrounding soft tissues are unremarkable. IMPRESSION: No acute cardiopulmonary process identified. Signed by: Dr. Slava Pearson MD on 03/10/2020 2:59 PM
--- NOTE | 2020-03-10 15:09 | Diagnostic Imaging Report ---
EXAM: ABDOMEN-1VIEW (KUB) DATE: 03/10/2020 2:30 PM INDICATION: Preoperative evaluation, urinary stones COMPARISON: 01/23/2020 FINDINGS: There has been interval placement of a right-sided double-J ureteral stent. The previously visualized calcification projecting over the inferior right renal shadow is no longer visualized. There is a stable 6 mm calcification projecting over the inferior left renal shadow. Stable appearing phleboliths noted within the pelvis. Bowel gas pattern is nonobstructive. Stable post surgical changes noted from lower lumbar instrument fusion. No acute osseous abnormality is identified. IMPRESSION: Interval placement of a right double-J ureteral stent. Previously visualized right renal calculus is not appreciated on today's examination. Stable 6 mm left renal calculus. Signed by: Dr. Slava Pearson MD on 03/10/2020 3:05 PM
[~2020-03-12] MED LIST changes: +ACETAMINOPHEN/CODEINE 300MG - 30MG TAB ONE; +ASPIRIN325 MG PO; +ATORVASTATIN CA20 MG PO; +B&O 60MG R/S 60 MG SUPP PR ONE; +CEFTRIAXONE SOD 1 GM/NS 50 ML 50 ML IV ONE; +CLOPIDOGREL75 MG PO; +ETOMIDATE 2 MG/ML 10 ML INJ IV ONE; +FENTANYL CITRATE/PF 100MCG/2 ML INJ ONE; +FISH OIL 1,0001 EAC2 PO; +GENTAMICIN 80MG/NS 100 ML 200 ML IV ONE; +HYDROMORPHONE 1MG/1ML INJ ONE; +IOPAMIDOL 300MG/ML 50ML INFUS..BTL IV ONE; +LASIX20 MG PO; +LIDOCAINE HCL 2% LOCAL INJ 5 ML SDV VIAL INJ ONE; +METOPROLOL SUCC50 MG PO; +ONDANSETRON HCL INJ 2MG/ML 2ML 2 MG/ML VIAL ONE; +PROPOFOL IV EMULSION 10 MG/ML 20 ML VIAL ONE; +SEVOFLURANE INHAL SOLN 250 ML PEN BTL ONE
[2020-03-12 07:31] LABS: BASOPHILS # (AUTO) 0.1 (0.0-0.1); BASOPHILS % 0.6 % (0.0-1.0); EOSINOPHILS # (AUTO) 0.5 (0.0-0.4); EOSINOPHILS % 6.6 % (0.0-6.0); HEMATOCRIT 38.7 % (34.2-44.1); HEMOGLOBIN 12.1 g/dL (12.0-16.0); LYMPHOCYTES # (AUTO) 3.6 (1.0-3.2); LYMPHOCYTES % 44.7 % (18.0-39.1); MEAN CORPUSCULAR HEMOGLOBIN 27.6 pg (28-32); MEAN CORPUSCULAR HGB CONC 31.3 g/dL (31-35); MEAN CORPUSCULAR VOLUME 88.2 fL (81-99); MONOCYTES # (AUTO) 0.5 (0.2-0.8); MONOCYTES % 6.5 % (4.4-11.3); NEUTROPHILS # (AUTO) 3.3 (2.1-6.9); NEUTROPHILS % 41.2 % (38.7-80.0); PLATELET COUNT 270 x10e3/uL (140-360); RED BLOOD COUNT 4.39 x10e6/uL (3.6-5.1); RED CELL DISTRIBUTION WIDTH 14.4 % (11.7-14.4)
[2020-03-12 07:47] LABS: BLOOD UREA NITROGEN 14 mg/dL (7-26); BUN/CREATININE RATIO 20 (6-25); CALCIUM 8.7 mg/dL (8.4-10.2); CARBON DIOXIDE 20 mmol/L (22-29); CHLORIDE 110 mmol/L (98-107); CREATININE, SERUM 0.71 mg/dL (0.57-1.11); EST GLOMERULAR FILTRATION RATE > 60 ML/MIN (60-); GLUCOSE 91 mg/dL (74-118); SODIUM 141 mmol/L (136-145)
[2020-03-12 11:35] VITALS: BP 139/81
--- NOTE | 2020-03-15 12:28 | Operative Report ---
DATE OF PROCEDURE: 03/12/2020 SURGEON: Geo Jones MD PREOPERATIVE DIAGNOSES: 1. Left nephrolithiasis. 2. Right nephrolithiasis. 3. Right indwelling ureteral stent. POSTOPERATIVE DIAGNOSES: 1. Bilateral nephrolithiasis. 2. Possible left ureterolithiasis that was disproven. 3. Right indwelling ureteral stent. 4. Grade 2 cystocele. 5. Urethral hypermobility. 6. Mixed type urinary incontinence. OPERATIONS PERFORMED: Note these were all staged procedures as part of multistaged, multistep process in managing the patient's urolithiasis. 1. Left-sided extracorporeal shockwave lithotripsy (separate procedure performed for the left nephrolithiasis). 2. Cystourethroscopy with left ureteral catheterization, retrograde ureteropyelography followed by flexible ureteroscopy to prove that the calcification in the region of the left ureter was not a ureteral stone. 3. Cystourethroscopy with complicated removal of right indwelling ureteral stent (separate procedure performed for the diagnosis of stent). 4. Right ureteroscopy with stone manipulation (separate procedure performed for the right nephrolithiasis). 5. Urological services for supervision and interpretation of ureteroscopy. 6. Interpretation of retrograde ureteropyelography. 7. Supervision of fluoroscopy, no radiologist present. 8. Pelvic examination under anesthesia. ANESTHESIA: General. COMPLICATIONS: None. CLINICAL SUMMARY: Jacqueline Ramirez is a 45-year-old woman with recurrent stone disease. She underwent lithotripsy for a 1.4 cm stone, stent was left in place. She is brought for management of her left-sided stone and removal of her stent and hopefully rendering her stent free and stone free on the right-hand side. She is aware of the risks of bleeding, infection, injury to adjacent structures, need for additional procedures and elected to proceed. OPERATIVE PROCEDURE IN DETAIL: Informed consent was verified. Jacqueline Ramirez was properly identified taken to the operating room, placed on the lithotripsy table in supine position. Anesthesia was uneventfully begun. There was a question of ureteral stone on the left hand side due to calcification in the region of the ureter. Therefore, the patient was carefully and gently repositioned in dorsal lithotomy position with all pressure points well padded. Her genitalia were prepared and draped in usual sterile fashion. A cystoscope sheath was inserted in the patient's urethra and bladder was drained. There was then some encrustation of the right-sided stent. A guidewire was then placed in the left ureter and guided to the level of the patient's kidney. Flexible ureteroscope was then brought up over the guidewire to the mid ureter where there was the region of calcification we rotated. The C-arm around the calcification noted and was not in the urinary tract. The ureter exhibited no stones. We brought the flexible ureteroscope up to the kidney where we identified the stone and we planned lithotripsy. The ureteroscope was withdrawn. Three thousand shocks were delivered with the Lithotripter to the stone. We identified with the ureteroscope in the left kidney with excellent fragmentation. A guidewire was then placed in the right ureter and guided to the level of the patient's kidney. The stent was then grasped completely, removed and discarded. Semi-rigid ureteroscope was then placed alongside the guidewire into the ureter. We identified some fine sand within the ureter. We then placed a flexible ureteroscope over the guidewire into the patient's kidney where panendoscopy revealed only fine sand. There were no stone large enough to grasp. We manipulated the sand by irrigating and loosening it from the mucosa so that it may easily pass. We carefully re-examined the ureter with the ureteroscope as we exited and it was opened without any suspicious lesions, without any tumors, without any stones that could be grasped. Interpretation of retrograde ureteropyelography contrast was instilled in retrograde fashion bilaterally. There was fullness of the right-sided collecting system. The left side of the filling defect corresponding to the stone with we performed lithotripsy upon unobstructed drainage was observed fluoroscopically. The patient's bladder was drained. Cystoscope was withdrawn. Pelvic examination revealed a grade 2 cystocele with urethral hypermobility. There were no obvious mucosal lesions. There were no palpable pelvic masses that could be appreciated. The patient was then uneventfully reversed from anesthesia and taken to recovery room in stable condition. There were no complications of the procedure. She tolerated the procedure well. Explicit postop instructions were given. We will follow the patient up in the office. Geo Jones MD [place]/[facility] /[id number]
== END | disposition home or self-care (01) ==
LOC: OR 06:55
PROVIDERS: ATTEND Urology
DX: N20.0 Calculus of kidney (principal); Z46.6 Encounter for fitting and adjustment of urinary device; N81.10 Cystocele, unspecified; N36.41 Hypermobility of urethra; N39.46 Mixed incontinence; R35.1 Nocturia; N26.9 Renal sclerosis, unspecified; E66.9 Obesity, unspecified; I25.10 Atherosclerotic heart disease of native coronary artery without angina pectoris; J45.909 Unspecified asthma, uncomplicated; I10 Essential (primary) hypertension; K21.9 Gastro-esophageal reflux disease without esophagitis; Z88.6 Allergy status to analgesic agent; Z88.2 Allergy status to sulfonamides; Z88.8 Allergy status to other drugs, medicaments and biological substances; Z01.810 Encounter for preprocedural cardiovascular examination; Z01.812 Encounter for preprocedural laboratory examination; Z01.818 Encounter for other preprocedural examination; Z11.59 Encounter for screening for other viral diseases; Z79.82 Long term (current) use of aspirin; Z79.02 Long term (current) use of antithrombotics/antiplatelets; Z68.36 Body mass index [BMI] 36.0-36.9, adult; Z86.73 Personal history of transient ischemic attack (TIA), and cerebral infarction without residual deficits; Z95.5 Presence of coronary angioplasty implant and graft; Z87.891 Personal history of nicotine dependence; Z80.51 Family history of malignant neoplasm of kidney
CPT/HCPCS: 36415; 50590; 71046; 74018; 80048; 85025; 87086; 93005; C1758; C1769; J0696; J1170; J1580; J2001; J2405; J3010; U0002

== ENCOUNTER 2020-07-30 12:46 | Emergency (ER) | payer OTHER ==
[~2020-07-30] VITALS: Ht 165.1 cm; Wt 102.1 kg
[~2020-07-30 12:46] MED LIST changes: -ACETAMINOPHEN/CODEINE 300MG - 30MG TAB ONE; -B&O 60MG R/S 60 MG SUPP PR ONE; -CEFTRIAXONE SOD 1 GM/NS 50 ML 50 ML IV ONE; -ETOMIDATE 2 MG/ML 10 ML INJ IV ONE; -FENTANYL CITRATE/PF 100MCG/2 ML INJ ONE; -GENTAMICIN 80MG/NS 100 ML 200 ML IV ONE; -HYDROMORPHONE 1MG/1ML INJ ONE; -IOPAMIDOL 300MG/ML 50ML INFUS..BTL IV ONE; -LIDOCAINE HCL 2% LOCAL INJ 5 ML SDV VIAL INJ ONE; -ONDANSETRON HCL INJ 2MG/ML 2ML 2 MG/ML VIAL ONE; -PROPOFOL IV EMULSION 10 MG/ML 20 ML VIAL ONE; -SEVOFLURANE INHAL SOLN 250 ML PEN BTL ONE
[2020-07-30] MEDS ORDERED: SODIUM CHLORIDE 0.9% 1000ML 1,000 ML IV STA (13:04)
[2020-07-30] MEDS ORDERED: MORPHINE SULFATE INJ 4 MG/ML INJ 1ML IV STA (13:11)
[2020-07-30] MEDS ORDERED: ONDANSETRON HCL INJ 2MG/ML 2ML 2 MG/ML VIAL IV STA (13:11)
[2020-07-30] MEDS ORDERED: SODIUM CHLORIDE 0.9% 500ML 500 ML IV ONE (13:15)
[2020-07-30] MEDS ORDERED: SODIUM CHLORIDE 0.9% 500ML 500 ML ONE (13:20)
[2020-07-30 13:30] LABS: BASOPHILS # (AUTO) 0.1 (0.0-0.1); BASOPHILS % 0.5 % (0.0-1.0); EOSINOPHILS # (AUTO) 0.3 (0.0-0.4); EOSINOPHILS % 2.7 % (0.0-6.0); HEMATOCRIT 40.6 % (34.2-44.1); HEMOGLOBIN 12.8 g/dL (12.0-16.0); LYMPHOCYTES # (AUTO) 4.4 (1.0-3.2); LYMPHOCYTES % 41.4 % (18.0-39.1); MEAN CORPUSCULAR HEMOGLOBIN 27.8 pg (28-32); MEAN CORPUSCULAR HGB CONC 31.5 g/dL (31-35); MEAN CORPUSCULAR VOLUME 88.1 fL (81-99); MONOCYTES # (AUTO) 0.6 (0.2-0.8); MONOCYTES % 5.8 % (4.4-11.3); NEUTROPHILS # (AUTO) 5.2 (2.1-6.9); NEUTROPHILS % 49.1 % (38.7-80.0); PLATELET COUNT 235 x10e3/uL (140-360); RED BLOOD COUNT 4.61 x10e6/uL (3.6-5.1); RED CELL DISTRIBUTION WIDTH 13.5 % (11.7-14.4)
[2020-07-30 13:38] LABS: INR 0.9; PROTHROMBIN TIME 12.6 seconds (11.9-14.5)
[2020-07-30 13:39] LABS: CLARITY,URINE CLEAR (CLEAR); COLOR,URINE YELLOW (YELLOW); PARTIAL THROMBOPLASTIN TIME 22.9 seconds (23.8-35.5)
[2020-07-30 13:40] LABS: KETONES,URINE NEGATIVE (NEGATIVE); LEUKOCYTE ESTERASE ,URINE NEGATIVE (NEGATIVE); NITRITE,URINE NEGATIVE (NEGATIVE); PROTEIN,URINE DIPSTICK NEGATIVE (NEGATIVE); URINE UROBILINOGEN 0.2 mg/dL (0.2 - 1)
[2020-07-30 13:47] LABS: ALBUMIN 3.5 g/dL (3.5-5.0); ALBUMIN/GLOBULIN RATIO 1.1 (0.8-2.0); ANION GAP 13.9 mmol/L (8-16); CALCIUM 8.5 mg/dL (8.4-10.2); CREATININE, SERUM 1.08 mg/dL (0.57-1.11); POTASSIUM 3.9 mmol/L (3.5-5.1)
[2020-07-30 13:57] LABS: BACTERIA,URINE FEW /HPF; EPITHELIAL CELLS,URINE FEW /LPF; RBC,URINE 0-5 /HPF (0-5); WBC,URINE (MAN) 0-5 /HPF (0-5)
== END 2020-07-30 14:48 | disposition home or self-care (01) ==
LOC: ER 12:57
DX: M54.5 Low back pain (principal); R11.2 Nausea with vomiting, unspecified; I10 Essential (primary) hypertension; I50.9 Heart failure, unspecified; Z87.442 Personal history of urinary calculi; Z20.828 Contact with and (suspected) exposure to other viral communicable diseases
CPT/HCPCS: 36415; 74176; 80053; 81001; 85025; 85610; 85730; 87086; 99284; J2270; J2405; J7030; J7040; U0002

== ENCOUNTER 2021-05-30 12:49 | Emergency (ER) | payer OTHER ==
[~2021-05-30] VITALS: Ht 165.1 cm; Wt 102.1 kg
== END 2021-05-30 14:47 | disposition home or self-care (01) ==
LOC: ER 13:10
DX: S63.502A Unspecified sprain of left wrist, initial encounter (principal); S50.02XA Contusion of left elbow, initial encounter; M54.2 Cervicalgia; W01.0XXA Fall on same level from slipping, tripping and stumbling without subsequent striking against object, initial encounter; Y93.01 Activity, walking, marching and hiking; I10 Essential (primary) hypertension; I50.9 Heart failure, unspecified
CPT/HCPCS: 72040; 99284